=== PATIENT | male | born 1955 | race Caucasian/White ===

== ENCOUNTER 2025-04-30 06:09 | Day surgery (SDC) | payer OTHER, SELFPAY ==
[2025-04-30] VITALS (14 sets, daily range): BP systolic 120–146; BP diastolic 63–88; BMI 28.3
[2025-04-30] MEDS: NSS 300 ML IV (07:20)
--- NOTE | 2025-04-30 08:28 | ITS.CL.CATH ---
[facility] - Catheterization
Cardiac Catheterization
Procedure Report:
CARDIAC CATHETERIZATION REPORT
Date of Procedure: 04/30/2025
Referring: Aster Maldonado M.D.
INDICATION: Severe mitral valve regurgitation, moderate aortic valve regurgitation, preoperative assessment.
PROCEDURE:
1. Coronary angiography.
A total of 28 minutes of procedural/moderate sedation was utilized. An independent medical staff physician was present to assist with and help manage the patient's level of consciousness and physiologic status.
ACCESS:
1. 6 Romanian right radial artery using a modified Seldinger technique.
CATHETERS:
1. 5 Romanian JR4.
2. 5 Romanian JL 5.
HEMODYNAMIC DATA
Weight (kg): 99.9
AO (s/d/x, mmHg): 124/73/96
LV (s/x mmHg): Not obtained.
LEFT VENTRICULOGRAPHY: Not performed.
CORONARY ANGIOGRAPHY
Dominance: Right.
Left Main: Large size, bifurcating vessel. There is no coronary artery disease.
LAD: Large size vessel giving rise to 2 notable diagonals. There are minor luminal irregularities in the mid vessel spanning the origin of D2. There is a 30% lesion in the distal LAD.
Ramus: Congenitally absent.
Circumflex: Large size, nondominant vessel giving rise to 2 obtuse marginals before terminating is a large left posterolateral branch. There is no coronary artery disease.
RCA: Normal size, dominant vessel. There is no coronary artery disease.
INTERVENTION(S)
None.
Closure Device: Vascular band.
Radiation (mGy): 425.55
DAP (cm2.Gy): 31.0644
Fluoroscopy time (minutes): 2.8
CONCLUSIONS
1. Right dominant circulation with luminal irregularities in the mid LAD and a 30% lesion in the distal LAD.
2. Severe mitral valve regurgitation on echocardiography.
3. Moderate aortic valve insufficiency on echocardiography.
RECOMMENDATIONS:
1. Expectant management after cardiac catheterization via right radial approach.
2. Limited weight bearing on the right wrist for one week.
3. Proceed with surgical planning. No role for revascularization.
4. Aggressive primary prevention with high-dose, high potency statin. Goal LDL <55.
Copy to: Aster Maldonado M.D. Henri Sauceda M.D., Aj Johnson M.D.
Brown Bose DO, FACC, FACP
[2025-04-30] MEDS: NSS 1000 IV (10:47)
== END 2025-04-30 11:30 | disposition home or self-care (01) ==
LOC: CATH 06:09
PROVIDERS: ATTENDING PHYSICIAN Internal Medicine Cardiovascular Disease; FAMILY PHYSICIAN Internal Medicine; OTHER PHYSICIAN Internal Medicine Clinical Cardiac Electrophysiology
DX: I48.0 Paroxysmal atrial fibrillation (principal); I08.0 Rheumatic disorders of both mitral and aortic valves; Z01.818 Encounter for other preprocedural examination; Z79.01 Long term (current) use of anticoagulants
CPT/HCPCS: 99152; 99153; 93454; C1894; Q9967

== ENCOUNTER 2025-05-06 04:57 | Inpatient (IN) | payer OTHER, SELFPAY ==
[2025-04-25 08:10] VITALS: BMI 28.2
[2025-04-25 08:53] LABS: Urine Character Clear (Clear)
[2025-04-25 08:58] LABS: Urine Squamous Cell 0-2 /LPF (Few); Urine White Cell 0-2 /HPF (0-5)
[2025-04-25 09:03] LABS: INR 1.13; PT 14.8 Sec (11.4-14.6)
[2025-04-25 09:06] LABS: ALT (SGPT) 33 U/L (0-50); AST (SGOT) 35 U/L (17-59); Albumin 4.5 g/dl (3.5-5.0); Alkaline Phosphatase 78 U/L (38-126); Blood Urea Nitrogen 20 mg/dl (9-20); Calcium 9.7 mg/dl (8.4-10.2); Carbon Dioxide 28 mmol/L (22-30); Chloride 106 mmol/L (98-107); Estimated Creatinine Clearance 65 ml/min; Glucose 83 mg/dl (70-99); Potassium 4.1 mmol/L (3.5-5.1); Sodium 143 mmol/L (135-145); Total Protein 7.5 g/dl (6.3-8.2); eGFR > 60.00
[2025-04-25 09:18] LABS: Glycohemoglobin (HgbA1c) 5.6 % (4.0-5.6)
--- NOTE | 2025-04-25 09:37 | CM ---
Chart reviewed. Met with the patient and his in [facility]. Reviewed preoperative and postoperative instructions and restrictions, along with showering guidelines. Gave patient 2 soaps. Patient is agreeable to a visit by the CT Transitional RN.
Patient is independent of ADLS, lives with his in a [facility], 2 STH, 1st level set up, 3 KALPANA, shower bench and grab bars, 0 DME. Plan is for the patient to return home with CT Transitional RN.
[2025-04-25 10:22] LABS: Hematocrit 41.3 % (39.0-52.0); Hemoglobin 14.0 g/dL (13.0-18.0); Mean Corp Hgb Conc. 33.9 g/dL (33.0-37.0); Mean Corpuscular Volume 93.0 fL (80.0-94.0); Nucleated Red Blood Cells % 0 % (-); Platelet Count 134 10^3/uL (130-400); Red Cell Dist. Width 13.0 % (11.5-14.5)
[2025-05-06] VITALS (22 sets, daily range): BP systolic 84–138; BP diastolic 60–80; BMI 27.2
--- NOTE | 2025-05-06 05:45 | W.PN.UPDATE ---
Update Note
Progress Note Update
Pt's AM dose of Lopressor contraindicated and not given. HR 53 bpm
[2025-05-06] MEDS: MAGNESIUM OXIDE 400 MG PO (05:49)
[2025-05-06] MEDS: BACTROBAN 2% OINTMENT 1 APPLIC NASAL ×2 (05:50→20:19)
[2025-05-06] MEDS: PROTONIX 40 MG PO (05:50)
--- NOTE | 2025-05-06 06:10 | PTCARENOTE ---
Patient admitted to CVICU. Patient confirmed 2 CHG showers at home. Med rec performed. Height, weight, and vital signs confirmed. Patient clipped and washed w/ CHG. Medications administered. Metoprolol held per CT PA Ed. Admission questions
asked. Questions and concerns answered. Awaiting CVOR.
--- NOTE | 2025-05-06 06:12 | W.CVOR.SURPR ---
CVOR Surgeon Immed Pre Op
-
I have examined this patient prior to performance of the scheduled procedure.
The patient's condition is unchanged from the time of the dictated/written History and
Physical and the patient is able to undergo the scheduled procedure.
Sternotomy MV repair, MAZE, BEAR E, +/- AV repair vs replacement based on degree of AI
[2025-05-06 07:24] LABS: Urine Character Clear (Clear)
[2025-05-06 07:26] LABS: ACT+ - POC 134 Seconds (82-134)
[2025-05-06 07:32] LABS: Urine Red Blood Cell 16-20 /HPF (0-2)
[2025-05-06 08:25] LABS: ACT+ - POC 568 Seconds (82-134)
[2025-05-06 08:29] LABS: B.E. - POC -1.9 mmol/L; Glucose - POC 107 mg/dl (70-99); HCO3 - POC 24 mmol/L (21-28); Hematocrit - POC 37 % PCV (42-52); Hemodilution- POC No; Hemoglobin Calculated - POC 12.6; Ionized Calcium - POC 1.21 mmol/L (1.15-1.33); Lactate - POC 0.68 mmol/L (0.36-0.75); O2 Saturation %Calculated-POC 95.3 % (94-98); PCO2 - POC 45 mmHg (35-48); PO2 - POC 83 mmHg (83-108); POC Comment PRE; Potassium - POC 3.9 mmol/L (3.5-5.1); Sodium - POC 141 mmol/L (136-145); Specimen Type - POC Arterial; pH - POC 7.34 (7.35-7.45)
[2025-05-06 08:39] LABS: ACT+ - POC 605 Seconds (82-134)
[2025-05-06 09:03] LABS: ACT+ - POC 504 Seconds (82-134)
[2025-05-06 09:25] LABS: B.E. - POC 1.5 mmol/L; Glucose - POC 149 mg/dl (70-99); HCO3 - POC 25 mmol/L (21-28); Hematocrit - POC 33 % PCV (42-52); Hemodilution- POC Yes; Hemoglobin Calculated - POC 11.2; Ionized Calcium - POC 1.03 mmol/L (1.15-1.33); Lactate - POC 0.40 mmol/L (0.36-0.75); O2 Saturation %Calculated-POC 99.9 % (94-98); PCO2 - POC 34 mmHg (35-48); PO2 - POC 276 mmHg (83-108); POC Comment CPB; Potassium - POC 4.6 mmol/L (3.5-5.1); Sodium - POC 140 mmol/L (136-145); Specimen Type - POC Arterial; pH - POC 7.48 (7.35-7.45)
[2025-05-06 09:36] LABS: ACT+ - POC 612 Seconds (82-134)
[2025-05-06 09:51] LABS: B.E. - POC 0.9 mmol/L; Glucose - POC 132 mg/dl (70-99); HCO3 - POC 26 mmol/L (21-28); Hematocrit - POC 34 % PCV (42-52); Hemodilution- POC Yes; Hemoglobin Calculated - POC 11.6; Ionized Calcium - POC 1.15 mmol/L (1.15-1.33); Lactate - POC 0.94 mmol/L (0.36-0.75); O2 Saturation %Calculated-POC 99.9 % (94-98); PCO2 - POC 44 mmHg (35-48); PO2 - POC 264 mmHg (83-108); POC Comment CPB; Potassium - POC 4.0 mmol/L (3.5-5.1); Sodium - POC 141 mmol/L (136-145); Specimen Type - POC Arterial; pH - POC 7.38 (7.35-7.45)
[2025-05-06 10:00] LABS: ACT+ - POC 530 Seconds (82-134)
[2025-05-06 10:22] LABS: B.E. - POC 0.6 mmol/L; Glucose - POC 135 mg/dl (70-99); HCO3 - POC 27 mmol/L (21-28); Hematocrit - POC 32 % PCV (42-52); Hemodilution- POC Yes; Hemoglobin Calculated - POC 10.9; Ionized Calcium - POC 1.16 mmol/L (1.15-1.33); Lactate - POC 0.88 mmol/L (0.36-0.75); O2 Saturation %Calculated-POC 99.9 % (94-98); PCO2 - POC 48 mmHg (35-48); PO2 - POC 270 mmHg (83-108); POC Comment CPB; Potassium - POC 4.4 mmol/L (3.5-5.1); Sodium - POC 143 mmol/L (136-145); Specimen Type - POC Arterial; pH - POC 7.35 (7.35-7.45)
[2025-05-06 10:31] LABS: ACT+ - POC 521 Seconds (82-134)
[2025-05-06 10:37] LABS: B.E. - POC 2.8 mmol/L; Glucose - POC 129 mg/dl (70-99); HCO3 - POC 27 mmol/L (21-28); Hematocrit - POC 31 % PCV (42-52); Hemodilution- POC Yes; Hemoglobin Calculated - POC 10.6; Ionized Calcium - POC 1.14 mmol/L (1.15-1.33); Lactate - POC 0.34 mmol/L (0.36-0.75); O2 Saturation %Calculated-POC 99.9 % (94-98); PCO2 - POC 41 mmHg (35-48); PO2 - POC 330 mmHg (83-108); POC Comment CPB; Potassium - POC 4.1 mmol/L (3.5-5.1); Sodium - POC 142 mmol/L (136-145); Specimen Type - POC Arterial; pH - POC 7.43 (7.35-7.45)
[2025-05-06 10:43] LABS: ACT+ - POC 448 Seconds (82-134)
[2025-05-06 10:59] LABS: ACT+ - POC 463 Seconds (82-134)
[2025-05-06 11:06] LABS: B.E. - POC 0.9 mmol/L; Glucose - POC 133 mg/dl (70-99); HCO3 - POC 25 mmol/L (21-28); Hematocrit - POC 32 % PCV (42-52); Hemodilution- POC Yes; Hemoglobin Calculated - POC 10.9; Ionized Calcium - POC 1.12 mmol/L (1.15-1.33); Lactate - POC 0.32 mmol/L (0.36-0.75); O2 Saturation %Calculated-POC 100.0 % (94-98); PCO2 - POC 38 mmHg (35-48); PO2 - POC 351 mmHg (83-108); POC Comment WARM; Potassium - POC 4.5 mmol/L (3.5-5.1); Sodium - POC 145 mmol/L (136-145); Specimen Type - POC Arterial; pH - POC 7.43 (7.35-7.45)
[2025-05-06 11:10] LABS: ACT+ - POC 118 Seconds (82-134)
[2025-05-06 11:20] LABS: B.E. - POC -2.2 mmol/L; Glucose - POC 131 mg/dl (70-99); HCO3 - POC 23 mmol/L (21-28); Hematocrit - POC 29 % PCV (42-52); Hemodilution- POC Yes; Hemoglobin Calculated - POC 9.8; Ionized Calcium - POC 1.25 mmol/L (1.15-1.33); Lactate - POC 1.34 mmol/L (0.36-0.75); O2 Saturation %Calculated-POC 96.2 % (94-98); PCO2 - POC 38 mmHg (35-48); PO2 - POC 84 mmHg (83-108); POC Comment POST; Potassium - POC 3.9 mmol/L (3.5-5.1); Sodium - POC 142 mmol/L (136-145); Specimen Type - POC Arterial; pH - POC 7.38 (7.35-7.45)
--- NOTE | 2025-05-06 11:49 | W.PN.CT.SURG ---
Addendum entered and electronically signed by Henri Sauceda MD 05/06/25 19:48:
05/06/25
Original Note:
CT Surgery Operative Note
-
CARDIAC SURGERY OPERATIVE REPORT
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
Postoperative Diagnosis: Same
Procedure(s) Performed:
1. Standard sternotomy and aortic and bicaval cannulation
2. Radical mitral valve repair [triangular dissection at P1 with sliding plasty onto the commisure with the remnant P1 leaflet and cleft closure of P1 P2, 34 mm band annuloplasty]
3. Surgical aortic valve replacement [29 mm bioprosthesis]
4. Left atrial maze [RF ablation and cryoablation]
5. Left atrial appendage exclusion
6. Placement of temporary atrial and ventricular pacing wires
7. Transesophageal cardiography
Date of Surgery: 05/06/25
Comorbidities:
1. 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
2. Moderate aortic valve insufficiency secondary to leaflet pathology at the noncoronary cusp commissure, fenestrations
3. Paroxysmal atrial fibrillation
4. Acute on chronic heart failure with admission
5. On chronic anticoagulation for A-fib
Attending Surgeon: Henri Sauceda MD, MS
Assistants: Aurea Munoz PA-C (present and necessary to surgical dental assistant, retraction, suction, exposure, suture management, and wound closure under my direction), Autumn Carcamo MD (Attending Cardiac Surgeon)
Anesthesiology: Giancarlo Keating MD and Cornelius Jacinto CRNA
Scrub and Circulating RNs: Mary Marie, KENDRA, Danilo Mcgill RN
Results Technician: Faviola Ryder CCP
Anesthesia: GETA
EBL: per perfusion records
Products: None
CPB Time: 124 minutes
Aortic Cross Clamp Time: 149 minutes
Indication(s) for Procedures: This is a 70-year-old male who was recently admitted to an outside facility for just of heart failure. He was found to have severe mitral valve insufficiency secondary to a P3/P2 flail scallop. Given his admission for
heart failure and his severe mitral valve insufficiency he met class I indication for surgical intervention. He also had a moderate degree of aortic valve insufficiency which would be evaluated time of surgery. Given his paroxysmal atrial
fibrillation, he was offered surgical ablation as well as left atrial appendage exclusion.
Aortic Valve Description: No thickening or abnormal calcification, fenestrations located at the noncoronary commissure with laxity of the noncoronary cusp leading to a mild degree of prolapse resulting in a moderate degree of insufficiency. Left
and right coronary ostia the normal anatomic positions.
Mitral Valve Description: Thickening of the P1 and P2 scallops with a large cleft. There was a flail segment of P1 with torn cords of the free margin. The annulus was severely dilated mostly towards the P2 P3 side.
Findings: His left ventricular ejection fraction preoperatively was normal at 60% with no significant regional wall motion abnormalities. Following surgery his EF remained the same at 60% with no new regional wall motion abnormalities. The mitral
valve was repaired with a resection of the P1 flail segment of the scallop in a triangular fashion. This was then reapproximated to the commissure. The cleft was then closed by approximately free margin of P2 onto P1 and then placing interrupted
5-0 Prolene [id number] sutures along the cleft. A total of 10 nonpledgeted 2-0 TiCron sutures were placed on trigone to trigone securing a 34 mm band annuloplasty into place. The aortic valve initially was examined and a plication stitch was
placed at the node of Arantius however I noticed there is also fenestrations toward the noncoronary commissure and some muscular creeping at the level of the annular plane. I did not feel the repair would be durable and so the valve was replaced
using a total of 15 nonpledgeted 2 of Ethibond sutures placed from LVOT through annulus through sewing cuff securing a [address]. A full left atrial maze was performed using a combination of RF ablation to form the posterior
wall lesion set and then using cryo to complete the coronary sinus and mitral isthmus as well as left atrial appendage line. Ligament of Sincere was also divided. A 40 mm clip was applied flush to the base and found to be totally occlusive by
RAOUL. After coming off cardiopulmonary bypass there was a trace residual amount of mitral valve sufficiency at the P1 side. There is no systolic anterior motion of leaflets, the mean gradient across the new valve repair was 3 mmHg. The aortic
valve had a very small insignificant paravalvular leak that improved with protamine. The gradient across that valve was 5 mmHg. No blood products were given during this case, cardiac index was over 2 without inotropic support initially, after
short period of DDI pacing he regained his tejon sinus rhythm. All closing the subcutaneous layer, there was some periods of fluctuating blood pressures, RAOUL did not reveal any hematoma however the drains seem to be clotted off and not draining
adequately. With this instability, and the poor drainage, I felt was safest to reopen and inspect. There was no obvious cardiac tamponade or large hematoma. There was some minor bleeding from the antegrade site and from the chest tube insertion
sites which were managed with additional suture. Hemostasis was once again obtained and inotropic support was initiated with good response and the LV overall appeared to be less dilated and yakelin better. I closed the chest in the usual fashion
once again.
Ablation Lines:
1. Box lesion to posterior LA wall
2. BEAR lesion + BEAR Exclusion + Division of Ligament of Sincere
3. Coronary sinus lesion
4. Posterior mitral annular line toward P2/P3
Specimen(s): Aortic valve leaflets.
Prosthesis:
1. 40 mm left atrial appendage clip, serial #[id number]
2. 34 mm Alba physio flex angioplasty band, serial #[id number]
3. 29 mm Alba Inspiris Resilia aortic valve bioprosthesis, serial #[id number]
Description of Procedure: The patient was taken to the operating room. Their identity and procedure to be performed were verified and they were positioned supine on the operating table. Induction via general anesthesia with endotracheal intubation
was performed and central venous access and arterial monitoring were inserted. A preoperative transesophageal echocardiogram was performed to assess cardiac function and valvular function. The patient was then prepped and draped from chin to feet in
a sterile fashion. A preoperative time-out was performed with all members of the team present. A midline chest incision was performed along with median sternotomy. The innominate vein was isolated. Full heparinization was given (a total of 65,000
units). We created a pericardial well. The aortic cannulation site was chosen where it was soft, pliable, and free of calcium. Cannulation was performed with an arterial cannula in the ascending aorta, angled metal tip cannular in the superior vena
cava and straight bendable cannula in the inferior vena cava. The arterial cannula line had an appropriate bounce and correlating pressures. Next, a root vent/antegrade cannula was inserted into the ascending aorta. A retrograde coronary sinus
catheter was then placed. The ACT was confirmed to be over 400 and retrograde autologous priming was performed before commencing cardiopulmonary bypass. The SVC was then away from the right pulmonary artery and the oblique sinus was
developed. The encompass clamp was passed underneath the SVC and IVC across the transverse and oblique sinuses, respectively. 3 successful pairs ablation were then performed. The pulmonary artery was away from the aorta to facilitate a
clamp site. Sondergaard�s groove was developed after creating the oblique sinus. The aortic cross-clamp was placed after decreasing the flow on the bypass and mean arterial pressure. A total of 1.2L initial dose of antegrade Del-Nido cardioplegia
solution was given and planned for re-dosing every 60 minutes as necessary. There was rapid electro-mechanical arrest of the heart at 500-600 cc of cardioplegia. The left ventricle was observed for distention on echocardiogram and manual palpation.
Cold slush was placed into a lap on the RV and we systemically cooled to 34 degrees centigrade.
Carbon dioxide was used to flood the field. Once the heart was fully arrested it was rotated medially and the ligament of Sincere was divided. The left atrial manage was then sized to a 40 mm device which was then applied flush to the base. I
then turned my attention towards opening Sondergaard's groove and addressed the mitral valve. Additional cryo lines were then performed here before valve repair. After valve analysis, the mitral valve was repaired as described above. The drop
sucker was then replaced across the mitral valve the left atrium was closed over top. I then performed an aortotomy approximately 1.5cm above the STJ in an oblique fashion. Stay sutures were placed and the I attempted a leaflet repair but ultimately
felt that it would not durable. The leaflets were excised. A total of 15 Non-pledgeted 2-0 ethibond inverted annular sutures were placed [id number] circumferentially. These were brought through the sewing cuff of the prosthetic valve which as
then parachuted into place. The left and right coronary ostia were visualized and were unobstructed by the valve. A Cor-Knot device was used to secure the annular sutures. The valve was inspected and was well seated. The aortotomy was approximated
with 4-0 prolene in two layers.
De-airing maneuvers were performed and temporary atrial and ventricular pacing wires were placed at the SVC/RA junction and base of the right ventricle, respectively. The patient was placed in a Trendelenburg position and flows on bypass were
lowered. The aortic cross clamp was removed and flows were slowly brought back up. The left atrial suture line was hemostatic. Transesophageal echocardiography revealed no evidence of systolic anterior motion and ventricular function was normal.
The AV prosthesis was well seated without PVL or AI. Once de-airing was satisfactory the left ventricular and root vents were removed. After verifying acceptable parameters, we initiated weaning from cardiopulmonary bypass. Once we were off
cardiopulmonary bypass, the venous cannulas was clamped and removed sequentially. A test dose of protamine was administered and the patient was monitored for any adverse reaction before resuming protamine. Once half of the protamine dose was
delivered, pump suckers were turned off and the systolic blood pressure was lowered for aortic decannulation. The aortic cannula was removed and purse strings were tied down. All cannulation sites were oversewn with a 4-0 prolene. The left atrial
suture line was inspected and hemostasis was confirmed. Mediastinal hemostasis was obtained. Two #24 Wayne drains were placed within the pericardium. The sternum was approximated with 4 #7 single and 3 #8 double stainless steel wires. Fascia was
approximated with #1 vicryl suture. The subcutaneous, dermis and epidermis were closed in layers in a running fashion. At this point I did reopen and removed all the previous wires and inspected all the surgical sites. There was no hematoma or
significant arterial bleeding. There was some minor oozing from the antegrade site which was managed with additional pledgeted sutures. A Vicryl suture was also placed around the pacing wire site as it inserted into the muscle and had some oozing
there. I then placed sternal wires in the usual fashion. The tissue layers were closed again and the skin wound was cleansed and dressed.
All instrument, sponge, and needle counts were confirmed to be correct x 2 at the end of the operation. The patient was transferred to the cardiac intensive care unit in critical but stable condition.
I, Dr. Henri Sauceda, was present, scrubbed for, and performed all critical elements of this procedure.
Henri Sauceda MD, MS
Cardiothoracic Surgeon
[facility]
This dictation was created using the [employer] dictation system. Please excuse any grammatical, typographical, or 'sound alike' errors
--- NOTE | 2025-05-06 12:03 | CON.INTV ---
Consultation
Consultation Request
Date/Time Consultation Requested: 05/06/2025- noon
Date/Time Consultation Performed: 05/06/2025- noon
Requesting Provider: Dr. Sauceda
Performing Provider: Dr. Apple
Reason for Consultation: Postoperative ventilator/critical care management
Medical History
-
Chief Complaint: Aortic stenosis
History of Present Illness:
70-year-old male with a history of atrial fibrillation, CHF, mitral valve regurgitation found to have significant mitral regurgitation and underwent mitral valve repair, MAZE, AVR-metal hanger consulted for postoperative ventilator/critical care
management 05/06/2025. The patient is seen postoperatively in the cardiovascular intensive care unit on the ventilator-review of systems was unobtainable. Operative records were reviewed as well as pressors, ventilator settings, etc.
Past Medical History
Past Medical History: None (Atrial fibrillation. Mitral valve regurgitation. History CHF. Cholecystectomy. Hernia repair x 3. Left knee arthroscopy.)
Social History
Tobacco: Non-smoker ( Never)
Alcohol: Occasional
Drug: None
Personal:
Living: With Family
Occupational Exposures: No known asbestos exposure
Environmental Exposures: No known tuberculosis exposure
Family History
Family History: Reviewed & Not Pertinent (Father-brain cancer, mother-CAD)
Allergies / Home Medications
Allergies
Allergy/AdvReac Type Severity Reaction Status Date / Time
fenofibrate (From Tricor) Allergy hot flashes Verified 04/30/25 06:42
Home Medications
�Medication �Instructions �Recorded �Confirmed �Last Taken �Type
amiodarone 200 mg tablet 200 mg PO DAILY AFib 04/23/25 05/06/25 05/05/25 07:00 History
apixaban 5 mg tablet (Eliquis) 5 mg PO BID Blood Clot 04/23/25 05/06/25 05/02/25 07:00 History
Prevention/Tx
icosapent ethyl 1 gram capsule 2 g PO BID High Cholesterol 04/23/25 05/06/25 04/28/25 20:00 History
(Vascepa)
multivitamin 1 tab PO DAILY Supplement 04/23/25 05/06/25 04/28/25 07:00 History
rosuvastatin 10 mg tablet 10 mg PO DAILY High Cholesterol 04/23/25 05/06/25 05/05/25 07:00 History
sildenafil 25 mg tablet 25 mg PO PRN PRN ED 04/23/25 05/06/25 05/01/25 14:00 History
diphenhydramine 25 2 tab PO HS PRN sleep 04/30/25 05/06/25 04/05/25 History
mg-acetaminophen 500 mg tablet
(Tylenol PM Extra Strength)
Review of Systems
-
Unable to Obtain full review of systems at this time due to: Patient Intubation and Other (Per HPI)
Vitals / Labs / Diagnostic Testing
Vital Signs
Temp Pulse Resp BP Pulse Ox
97.6 F 57 16 126/73 97
05/06/25 05:36 05/06/25 05:36 05/06/25 05:36 05/06/25 05:06 05/06/25 05:36
Diagnostic Testing:
Physical Exam
-
Exam:
well-nourished and well-developed in no apparent distress
HEENT-atraumatic, normocephalic, oral tracheal intubation
Heart-regular rate and rhythm-no murmurs, rubs or gallops
Chest-clear to auscultation, no wheezes, crackles, median sternotomy bandage is not removed
Abdomen soft nondistended
Extremities-no cyanosis, clubbing, edema and good peripheral pulses
Integument-intact, no rashes, lesions or ecchymosis
Neurologically not alert, not oriented, not moving any of his extremities sedated on a ventilator
Assessment
-
70-year-old male with a history of atrial fibrillation, CHF, mitral valve regurgitation found to have significant mitral regurgitation and underwent mitral valve repair/replacement, LA - MAZE -metal hanger consulted for postoperative
ventilator/critical care management 05/06/2025.
Severe mitral regurgitation
Status post mitral valve repair/MAZE/AVR/clip-Dr. Sauceda 05/06/2025
Small incidental pulmonary nodules
Conditions present prior to admission:
Atrial fibrillation.
Mitral valve regurgitation.
History CHF.
Cholecystectomy.
Hernia repair x 3.
Left knee arthroscopy.
Plan
Ventilator settings reviewed
FiO2 will be weaned
Minute ventilation will be adjusted
Arterial blood gases will be monitored
Spontaneous breathing trial will be attempted with hopeful extubation after anesthesia/sedation wear off
Pulmonary artery catheter parameters will be followed
Pressors/antihypertensive/inotropes/diuretics will be provided as needed
Monitor chest tube output
Monitor hemoglobin
Monitor platelet count and coags
Transfuse blood product if needed
CT surgery following chest tubes
Monitor blood sugar
Insulin drip per protocol
Aspiration precautions
VAP prevention protocol
DVT prophylaxis
Early nutrition
Early mobilization
Follow-up CT chest in 1 year to ensure nodular stability
Critical care statement: A total of 65 minutes of critical care time was provided for this patient today. This includes management of ventilator, spontaneous breathing trial, arterial blood gases, pressors, of unstable vital signs, evaluation of the
patient at bedside, reviewing the patient's pertinent medical records including radiographs, microbiology, laboratory evaluations, and discussion with primary team and critical care nursing.
Diagnostic data:
CT chest 04/25/2025-mild ectasia of the ascending aorta measuring 4 cm, no pericardial effusion, small lung nodules and parenchymal opacifications largest nodule measuring 4.8 mm
Cardiac catheterization 04/30/2025-severe mitral regurgitation, moderate aortic valve insufficiency, mid LAD irregularities and 30% distal LAD lesion
Data Reviewed
-
EKG: Report reviewed by me
CT Scan: Image personally visualized and interpreted and Report reviewed by me
Medical Tests (Nuc Med, Echo etc): Report reviewed by me
Old Records: Reviewed
Critical Care Time (in minutes): 65
[2025-05-06 12:39] LABS: ACT+ - POC 142 Seconds (82-134)
[2025-05-06] MEDS: NEURONTIN PO ×3 (12:50→23:02)
[2025-05-06] MEDS: TYLENOL PO ×2 (12:50→23:02)
[2025-05-06 13:17] LABS: B.E. - POC -2.2 mmol/L; Glucose - POC 124 mg/dl (70-99); HCO3 - POC 24 mmol/L (21-28); Hematocrit - POC 32 % PCV (42-52); Hemodilution- POC Yes; Hemoglobin Calculated - POC 10.9; Ionized Calcium - POC 1.20 mmol/L (1.15-1.33); Lactate - POC 0.91 mmol/L (0.36-0.75); O2 Saturation %Calculated-POC 99.4 % (94-98); PCO2 - POC 46 mmHg (35-48); PO2 - POC 173 mmHg (83-108); Potassium - POC 4.0 mmol/L (3.5-5.1); Sodium - POC 143 mmol/L (136-145); Specimen Type - POC Arterial; pH - POC 7.32 (7.35-7.45)
[2025-05-06] MEDS: NSS 500 IV (14:00)
[2025-05-06] MEDS: LR 250 ML IV ×3 (14:00→16:43)
[2025-05-06] MEDS: ANCEF 10 IV ×2 (14:00)
[2025-05-06 14:01] LABS: B.E. -2.8 mmol/L; HCO3 24.0 mmol/L (21-28); O2 Saturation % 99.0 % (94-98); PCO2 50 mmHg (35-48); PO2 109 mmHg (83-108); Potassium 3.9 mMOL/L (3.5-5.1); Sodium 138 mMOL/L (136-145)
[2025-05-06 14:04] LABS: B.E. - POC -1.4 mmol/L; Blood Urea Nitrogen - POC 16 mg/dl (3-120); Chloride - POC 110 mmol/L (96-111); Creatinine - POC 1.09 mg/dl (0.3-1.0); Glucose - POC 125 mg/dl (70-99); HCO3 - POC 26 mmol/L (21-28); Hematocrit - POC 26 % PCV (42-52); Hemodilution- POC No; Hemoglobin Calculated - POC 9.0; Ionized Calcium - POC 1.15 mmol/L (1.15-1.33); Lactate - POC 1.11 mmol/L (0.36-0.75); O2 Saturation %Calculated-POC 87.9 % (94-98); PCO2 - POC 54 mmHg (35-48); PO2 - POC 62 mmHg (83-108); Potassium - POC 3.8 mmol/L (3.5-5.1); Sodium - POC 147 mmol/L (136-145); Specimen Type - POC Arterial; pH - POC 7.28 (7.35-7.45)
[2025-05-06] MEDS: CORDARONE 3 MG IV (14:05)
[2025-05-06] MEDS: CORDARONE 518 MG IV (14:06)
--- NOTE | 2025-05-06 14:10 | W.PN.UPDATE ---
Update Note
Progress Note Update
70-year-old male was electively admitted on 05/06/2025 for AVR, mitral repair, and maze for severe mitral regurgitation due to flail P1, moderate AI and history of A-fib
IV fluids: 1800
U.O.:� 600
Cell Saver: 500
Blood:� 50
Wires:� A + V wires
Drips: Dobut 5, Vaso 0.02, Levo 4, Insulin, Precedex
�
NEURO: sedated, pupils +2mm B/L
RESP: #8OT @23cm> 500/60%/14/5. Lungs clear B/L. 2 mediastinal (30cc on arrival) chest tubes to -20cm suction. Sanguineous drainage
CV: RRR +S1, S2, no S3, no�rub, no murmur. Dermabond to median sternotomy. RIJ w/[place] locked @ 45cm. PA 46/22; CVP 7; CI 3.35
ABD: round, soft, no BS
EXT: no edema, +2/4 DP pulses B/L, no femoral bruit, left radial A-line intact
: Montoya with clear yellow urine
�
A/P: POD #0 s/p AVR #29mm bio, mitral repair with triangular dissection at P1 w/sliding plasty and cleft closure of P1 P2, #34 mm band, MAZE(RF ablation & cryo)
RAOUL: Normal EF, AV mean 5mmHg, MV mean 3mmHg
- wean and extubate
- will need instruction regarding antibiotic prophylaxis for dental and invasive procedures
- will need pre discharge TTE
# Permanent AF with postop LESLIE
- Amio 150mg IV + infusion Dobutamine down to 3, LR bolus 500cc, CV x 1 (200j) d/t hemodynamic instability>AF slower rate
- on Adal/Eliquis at home
# Acute post-op hypercarbic respiratory failure
- vent settings adjusted to RR 18, FiO2 70%, PEEP 8
- recheck ABG in 1 hour
�
# acute surgical blood loss anemia-expected
- trend CBC
�
# Acute post-op hyperglycemia (A1C 5.6)
- insulin infusion x 24h
- assess need for continued SSI
�
# Hyperlipidemia
- resume statin, Vascepa
--- NOTE | 2025-05-06 14:12 | CM ---
Chart reviewed. Patient is in the OR today. Patient is independent of ADLS, lives with his in a 2 STH, 1st level set up, 3 KALPANA, 0 DME. Plan is for the patient to return home with CT Transitional RN. CM to follow
[2025-05-06 14:14] LABS: INR 1.45; PT 17.9 Sec (11.4-14.6)
[2025-05-06 14:15] LABS: APTT 34.3 Sec (23.4-35.0)
[2025-05-06] MEDS: CALCIUM GLUCONATE 100 IV (14:18)
[2025-05-06 14:24] LABS: Blood Urea Nitrogen 18 mg/dl (9-20); Estimated Creatinine Clearance 78 ml/min; Glucose 122 mg/dl (70-99); Magnesium 2.4 mg/dl (1.6-2.3)
--- NOTE | 2025-05-06 14:30 | PTCARENOTE ---
pt received from [facility] @~1340, sedated on Precedex gtt, RASS-5. core temp 94.4F, bear hugger applied as ordered. A-fib on the monitor per post op EKG, HR 100-110s. synchronized cardioversion performed w/ Dr. Sauceda at bedside, 200J x1. amiodarone 150mg
IVP given per Dr. Sauceda. Amiodarone gtt started as ordered. HR 90s, EKG performed, SR w/ 1st AVB, HR 90s. SBP goal 90-110s, MAPs >65, Levophed and Vasopressin gtts titrated as ordered. A&V wires in place, DDI 45/. PAP 40-50s/20s, Dr. Sauceda aware.
CVP ~7. CI >2. Dobutamine gtt titrated as ordered. palpable pulses. pt mechanically ventilated, ETT @8.0, 23cm@lip. SIMV 14, TV 500, PEEP 8, FIO2 70%. POX 92-97%. lungs clear anteriorly. CTx2, no air leak or crepitus. pt abdomen s/n, hypoactive BS.
Montoya in place, clear yellow urine. sternal incision CLIP ON SUNGLASSES ASSEMBLER, approximated. chest tube site c/d/i. RIJ cordis/swan maintained. L radial Alexandra flushed, zeroed, and calibrated. PIV. insulin gtt running as ordered. lab work drawn, CXR completed. 500ml LR
given as ordered. lytanika repleted. see worklist for VS, I&O, and assessment.
[2025-05-06 14:31] LABS: Glucose - Point of Care 130 mg/dl (70-99)
[2025-05-06 14:40] LABS: Hematocrit 28.7 % (39.0-52.0); Hemoglobin 9.7 g/dL (13.0-18.0); Platelet Count 70 10^3/uL (130-400)
[2025-05-06 14:46] LABS: B.E. -1.2 mmol/L; HCO3 25.2 mmol/L (21-28); O2 Saturation % 99.0 % (94-98); PCO2 49 mmHg (35-48); PO2 96 mmHg (83-108)
[2025-05-06 15:05] LABS: Glucose - Point of Care 133 mg/dl (70-99)
[2025-05-06] MEDS: PACERONE PO (15:17)
[2025-05-06] MEDS: KCL 50 IV (15:23)
[2025-05-06 15:43] LABS: B.E. - POC 4.3 mmol/L; Glucose - POC 116 mg/dl (70-99); HCO3 - POC 28 mmol/L (21-28); Hematocrit - POC 31 % PCV (42-52); Hemodilution- POC Yes; Hemoglobin Calculated - POC 10.6; Ionized Calcium - POC 1.09 mmol/L (1.15-1.33); Lactate - POC < 0.30 mmol/L (0.36-0.75); O2 Saturation %Calculated-POC 100.0 % (94-98); PCO2 - POC 38 mmHg (35-48); PO2 - POC 378 mmHg (83-108); POC Comment CPB; Potassium - POC 3.8 mmol/L (3.5-5.1); Sodium - POC 141 mmol/L (136-145); Specimen Type - POC Arterial; pH - POC 7.48 (7.35-7.45)
[2025-05-06] MEDS: PRECEDEX 100 IV (15:55)
[2025-05-06 16:06] LABS: B.E. - POC -0.1 mmol/L; Blood Urea Nitrogen - POC 18 mg/dl (3-120); Chloride - POC 107 mmol/L (96-111); Creatinine - POC 1.13 mg/dl (0.3-1.0); Glucose - POC 164 mg/dl (70-99); HCO3 - POC 26 mmol/L (21-28); Hematocrit - POC 27 % PCV (42-52); Hemodilution- POC No; Hemoglobin Calculated - POC 9.3; Ionized Calcium - POC 1.21 mmol/L (1.15-1.33); Lactate - POC 1.11 mmol/L (0.36-0.75); O2 Saturation %Calculated-POC 95.6 % (94-98); PCO2 - POC 45 mmHg (35-48); PO2 - POC 83 mmHg (83-108); Potassium - POC 4.6 mmol/L (3.5-5.1); Sodium - POC 143 mmol/L (136-145); Specimen Type - POC Arterial; pH - POC 7.36 (7.35-7.45)
[2025-05-06 16:07] LABS: Glucose - Point of Care 144 mg/dl (70-99)
--- NOTE | 2025-05-06 16:49 | PTCARENOTE ---
pt appears to be in accelerated junctional rhythm, HR 90s. SBP 80s. Levophed gtt titrated as ordered. APPRENTICE TECHNICIAN aware. EKG completed. 250ml LR given. PEEP decrease from 10 to 8 by RT Jeannie per APPRENTICE TECHNICIAN Sujata. APPRENTICE TECHNICIAN aware of hemodynamics and gtts.
[2025-05-06 17:05] LABS: Glucose - Point of Care 133 mg/dl (70-99)
[2025-05-06 17:36] LABS: B.E. - POC 0.0 mmol/L; Blood Urea Nitrogen - POC 18 mg/dl (3-120); Chloride - POC 108 mmol/L (96-111); Creatinine - POC 1.19 mg/dl (0.3-1.0); Glucose - POC 149 mg/dl (70-99); HCO3 - POC 26 mmol/L (21-28); Hematocrit - POC 28 % PCV (42-52); Hemodilution- POC No; Hemoglobin Calculated - POC 9.6; Ionized Calcium - POC 1.25 mmol/L (1.15-1.33); Lactate - POC 1.17 mmol/L (0.36-0.75); O2 Saturation %Calculated-POC 98.3 % (94-98); PCO2 - POC 45 mmHg (35-48); PO2 - POC 115 mmHg (83-108); Potassium - POC 4.7 mmol/L (3.5-5.1); Sodium - POC 145 mmol/L (136-145); Specimen Type - POC Arterial; pH - POC 7.37 (7.35-7.45)
[2025-05-06] MEDS: LEVOPHED 250 IV (17:43)
--- NOTE | 2025-05-06 17:47 | PTCARENOTE ---
EPOC completed on FIO2 60% and PEEP 8 by MICROSOFT OFFICE INSTRUCTOR. per MICROSOFT OFFICE INSTRUCTOR, decrease FIO2 to 40%, POX 95%. pt able to nod head, follow commands, PAIGE. MICROSOFT OFFICE INSTRUCTOR aware of Vaso and Levophed gtts. attempted AAI @ rate of 100 w/ MICROSOFT OFFICE INSTRUCTOR at bedside, no change in hemodynamics, placed on AAI
50/14.
[2025-05-06 18:09] LABS: Hematocrit 29.0 % (39.0-52.0); Hemoglobin 9.9 g/dL (13.0-18.0); Platelet Count 101 10^3/uL (130-400)
[2025-05-06 18:11] LABS: Glucose - Point of Care 126 mg/dl (70-99)
--- NOTE | 2025-05-06 18:42 | RESPNOTE ---
Patient extubated to 6L NC after weaning on cpap/psv 5/5 for 30 minutes. No stridor noted on extubation. Patient able to verbalize name and clear secretions. Spo2 95-99% on 6L.
--- NOTE | 2025-05-06 18:45 | PTCARENOTE ---
Addendum entered by Aarti Torres RN 05/07/25 09:12:
PEEP @5*
Original Note:
pt placed on CPAP trial @1800, on PEEP @8, FIO2 40%. pt extubated as ordered @1830 to 6LNC, oriented x4. PAIGE. called and updated.
[2025-05-06] MEDS: LOW STRENGTH ASPIRIN 81 MG PO (19:34)
[2025-05-06] MEDS: ANCEF 5 IV (19:34)
[2025-05-06 20:01] LABS: Glucose - Point of Care 113 mg/dl (70-99)
--- NOTE | 2025-05-06 20:10 | PTCARENOTE ---
Assumed care of patient at 1900. Patient found resting in bed at time of assessment. Patient is AOx4, follows commands appropriately, moves all extremities. Patient reports drowsiness. Lung sounds are clear and equal bilaterally, patient is on 6L
via NC saO2 100%, there are 2xmed CTs draining red sanguineous to one atrium. Heart sounds are audible. Patient is in an accelerated junctional rhythm HR in the 90s with BBB and PACs. There is a temporary PM in place with AAI settings. Patient has
normal palpable pulses and no observable edema. Patient has hypoactive BS throughout and has parrish draining clear yellow urine. Patient had nausea and episode of emesis at 2004 green-yellow bilious in appearance. CT PA aware advised to not give
zofran d/t earlier rhythm issues. Patient has sternal incision approx with surg adhesive GROUP DIRECTOR EXPERIENCE and 4x4 gauze dressing over CT wounds that is CDI. Patient has the following lines: R IJ cordis with swan at 45cm, R AC PIV, and L radial Alexandra. Patient has
the following gtts: Cordis/VIP KVO, Insulin col 2, Levo@6, Vaso@0.05, Dobut@3. Patient has no c/o pain. VSS. Call tavera within reach.
[2025-05-06] MEDS: SENOKOT-S PO (20:20)
[2025-05-06 20:24] LABS: B.E. 1.2 mmol/L; HCO3 24.9 mmol/L (21-28); O2 Saturation % 98.9 % (94-98); PCO2 35 mmHg (35-48); PO2 80 mmHg (83-108); Potassium 4.7 mMOL/L (3.5-5.1)
[2025-05-06] MEDS: REGLAN 10 MG IV (20:58)
[2025-05-06] MEDS: CALCIUM GLUCONATE 130 MG IV (21:05)
--- NOTE | 2025-05-06 21:15 | PTCARENOTE ---
Per CT PA turn off Vaso and titrate Levo to manage BPs. ABG and MVO2 obtained. Repleted Ca with 3g CaGluconate. Additional episode of bilious emesis received orders for IV reglan.
[2025-05-06 22:04] LABS: Glucose - Point of Care 125 mg/dl (70-99)
[2025-05-06] MEDS: LIPITOR PO (23:02)
[2025-05-06 23:07] LABS: Glucose - Point of Care 114 mg/dl (70-99)
[2025-05-07] VITALS (34 sets, daily range): BP systolic 82–145; BP diastolic 55–90; BMI 28.2
--- NOTE | 2025-05-07 | PTCARENOTE ---
Patient reassessed. VSS. Remains Junctional on the monitor. O2 weaned to 2L. Levo tapered to 6. Call tavera within reach.
[2025-05-07 00:13] LABS: Glucose - Point of Care 122 mg/dl (70-99)
[2025-05-07 01:07] LABS: Glucose - Point of Care 107 mg/dl (70-99)
[2025-05-07 02:11] LABS: Glucose - Point of Care 107 mg/dl (70-99)
[2025-05-07] MEDS: LEVOPHED 250 IV (03:13)
[2025-05-07] MEDS: ANCEF 5 IV ×2 (03:13→11:20)
--- NOTE | 2025-05-07 03:40 | PTCARENOTE ---
Addendum entered by Pancho Barksdale RN 05/07/25 03:49:
At 0237 patient appears to have converted from Junction to SR with frequent PACs, BBB, long QT which was corroborated by EKG. No significant change to BP noted.
Original Note:
Patient reassessed. Vital signs stable. Levo tapered to 4. N/V from earlier appears to have resolved. Patient still reports no pain, but does report trouble sleeping. Patient repositioned to optimize comfort. AM EKG obtained. AM hygiene care
provided. Labs obtained. HF eduction provided.
--- NOTE | 2025-05-07 03:58 | W.PN.CT ---
Today's Communication / Plan
-
Plan:
-No major issues overnight. Hemodynamically and neurologically intact
-Successfully extubated on 05/06/25 @ 1832
-Dobutamine weaned to 3 mcg/kg min from 5, Levophed weaned from 8 to off @ 0515, insulin gtt per protocol, vasopressin weaned off overnight
-Last CI 2.8, MVO2 59.4%, u/o since OR 900 mL
-Current rhythm is NSR with PAC's @ 75 bpm
-Monitor chest tube drainage: 2med 225/425. CXR looks clear on my assessment, f/u official report
-Cont. current meds (ASA, Lipitor, Amiodarone and Lopressor currently on hold)
-Wean off dobutamine and Levophed as tolerated
-Will d/c swan and a-line when off pressor/inotrope
-Maintain parrish catheter for accurate I/O's while on dobutamine
-Will transition off insulin drip today per protocol
-Maintain temporary PW
-Maintain cordis
-Encourage use of IS
-Wean off of O2 as tolerated
-OOB into chair
-Ambulate
Assessment / Plan
-
Assessment:
-S/P Sternotomy/Radical mitral valve repair [triangular dissection at P1 with sliding plasty onto the commisure with the remnant P1 leaflet and cleft closure of P1 P2, 34 mm band annuloplasty]/Surgical aortic valve replacement [29 mm
bioprosthesis]/Left atrial maze [RF ablation and cryoablation]/ Left atrial appendage exclusion, by Dr. Sauceda, 05/06/25, pod#1
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
-Moderate aortic valve insufficiency secondary to leaflet pathology at the noncoronary cusp commissure, fenestrations
-Paroxysmal atrial fibrillation (on Eliquis @ home)
-S/P RAOUL cardioversion on 03/31
-LVEF 60% per introp RAOUL
-Acute on chronic diastolic CHG
-HLD
-S/p inguinal herniorrhaphy x 3
-S/P Joyce
-S/P Left knee arthroscopy
-Acute postop blood loss/Anemia (stable)
-Acute postop thrombocytopenia (stable without active bleed)
-Acute postop atelectasis with fever
-Acute postop hypovolemia with subsequent hypervolemia
-Acute postop accelerated junctional rhythm
-Acute postop sinus with PAC's
Discussed patient care with: Cardiology, Nursing, Respiratory Therapy, Pharmacy and Care Team
Subjective
Procedure
-S/P Sternotomy/Radical mitral valve repair [triangular dissection at P1 with sliding plasty onto the commisure with the remnant P1 leaflet and cleft closure of P1 P2, 34 mm band annuloplasty]/Surgical aortic valve replacement [29 mm
bioprosthesis]/Left atrial maze [RF ablation and cryoablation]/ Left atrial appendage exclusion, by Dr. Sauceda, 05/06/25
-
Date of Service: May 07, 2025
Pt c/o incisional pain, otherwise feels well
Objective Data
-
PT 17.9 Sec (11.4-14.6) H 05/06/25 13:44
INR 1.45 05/06/25 13:44
APTT 34.3 Sec (23.4-35.0) 05/06/25 13:44
Vital Signs
Vital Signs
Temp Pulse Resp BP Pulse Ox
100.2 F 85 18 93/56 95
05/07/25 03:11 05/07/25 03:35 05/07/25 03:35 05/07/25 03:00 05/07/25 03:35
CT Intake/Output/Weight
05/06/25 05/06/25 05/07/25
06:59 18:59 06:59
Intake Total 1543.0 / 2093.3 550.3 / 2093.3
Output Total 620 / 1270 650 / 1270
Balance 923.0 / 823.3 -99.7 / 823.3
SaO2: 95 (2L)
Physical Exam
-
General: Awake, Oriented and AOx3
Cardiovascular: Irregular rate & rhythm (sinus with PAC's)
Respiratory: Decreased Breath Sounds (at bases, otherwise clear)
Sternum: Stable
Incision: Clean, Dry, Intact and Dressing Intact
Extremities: Other (+trace edema)
Data Reviewed
-
Lab Results: Results Reviewed
Medications: Active Meds Reviewed
Chest X-Ray: Report Reviewed and Image Reviewed
ECG: Report Reviewed and Image Reviewed
[2025-05-07 04:00] LABS: Hematocrit 27.3 % (39.0-52.0); Hemoglobin 9.3 g/dL (13.0-18.0); Mean Corp Hgb Conc. 34.1 g/dL (33.0-37.0); Mean Corpuscular Volume 93.5 fL (80.0-94.0); Platelet Count 100 10^3/uL (130-400); Red Cell Dist. Width 13.2 % (11.5-14.5)
[2025-05-07 04:11] LABS: INR 1.29; PT 16.4 Sec (11.4-14.6)
[2025-05-07 04:18] LABS: Glucose - Point of Care 105 mg/dl (70-99)
[2025-05-07 04:26] LABS: Blood Urea Nitrogen 20 mg/dl (9-20); Calcium 8.5 mg/dl (8.4-10.2); Carbon Dioxide 25 mmol/L (22-30); Chloride 111 mmol/L (98-107); Estimated Creatinine Clearance 65 ml/min; Glucose 109 mg/dl (70-99); Magnesium 2.2 mg/dl (1.6-2.3); Potassium 4.5 mmol/L (3.5-5.1); Sodium 139 mmol/L (135-145); eGFR > 60.00
[2025-05-07] MEDS: CALCIUM GLUCONATE 130 MG IV (04:50)
--- NOTE | 2025-05-07 05:54 | PTCARENOTE ---
Additional 3g CaGluconate repletion. BP high following XR SBP>140. Levo turned off 30 mins later SBP 100s. Per CT PA patient to remain lined and in bed this morning.
[2025-05-07 06:10] LABS: Glucose - Point of Care 113 mg/dl (70-99)
[2025-05-07] MEDS: TYLENOL 1000 MG PO ×3 (06:25→22:17)
[2025-05-07] MEDS: NOVOLIN R INSULIN INFUSION 100 IV (07:36)
--- NOTE | 2025-05-07 07:46 | W.PN.INTV ---
Today's Communication / Plan
Recommendations
Tolerated extubation
Wean FiO2
Increase activity
Wean dobutamine and norepinephrine
Increase activity
Likely will be weaned off insulin drip and transferred to telemetry-at that point iron handler will sign off-call pulmonary if respiratory issues arise
Assessment
-
70-year-old male with a history of atrial fibrillation, CHF, mitral valve regurgitation found to have significant mitral regurgitation and underwent mitral valve repair/replacement, LA - MAZE -iron handler consulted for postoperative
ventilator/critical care management 05/06/2025.
Severe mitral regurgitation
Status post mitral valve repair/MAZE/AVR/clip-Dr. Sauceda 05/06/2025
Small incidental pulmonary nodules
Conditions present prior to admission:
Atrial fibrillation.
Mitral valve regurgitation.
History CHF.
Cholecystectomy.
Hernia repair x 3.
Left knee arthroscopy.
Plan
Tolerated extubation
Wean FiO2
Encourage incentive spirometry
Increase activity
Aspiration precautions
Pulmonary artery catheter and arterial line will be removed
Pressors have been weaned
Continue to monitor chest tube output
Follow hemoglobin
Continue to follow platelet count and coags
Transfuse blood product as needed
CT surgery following chest tubes as well
Follow blood sugar
Insulin supplementation continues as needed
Early nutrition
Early mobilization
DVT prophylaxis
Follow-up CT chest in 1 year to ensure nodular stability-patient told of incidental findings and need for follow-up to ensure nodular stability
Patient will likely be weaned off insulin drip and will be transferred to telemetry phase-call pulmonary if respiratory issues arise
Reviewed the patient�s pertinent medical records including radiographs, microbiology, laboratory evaluations, and��discussion with primary team, and critical care nursing.
Diagnostic data:
CT chest 04/25/2025-mild ectasia of the ascending aorta measuring 4 cm, no pericardial effusion, small lung nodules and parenchymal opacifications largest nodule measuring 4.8 mm
Cardiac catheterization 04/30/2025-severe mitral regurgitation, moderate aortic valve insufficiency, mid LAD irregularities and 30% distal LAD lesion
Subjective Dataa
Subjective Data
Date of Service:
Date of Service: May 07, 2025
Chief Complaint: Hand Carver Follow Up and Vent Management Follow Up
Subjective:
Tolerated extubation, no complaints of shortness of breath, pain controlled, chest tubes not dumping, on dobutamine but no other pressors
Review of Systems
General: Other (Per HPI)
Objective Data
Data Reviewed
Vital Signs / I&O / Oxygen:
Vital Signs
Temp Pulse Resp BP Pulse Ox
99.7 F 80 16 96/66 93
05/07/25 07:00 05/07/25 07:20 05/07/25 07:20 05/07/25 07:00 05/07/25 07:15
Intake and Output
05/06/25 05/07/25 05/08/25
06:59 06:59 06:59
Intake Total 2179.0 / 2241.1 62.1 / 62.1
Output Total 1385 / 1445 60 / 60
Balance 794.0 / 796.1 2.1 / 2.1
SaO2 [CPAP] 94
SaO2 [SIMV] 96
SaO2 93
Nasal Cannula flow liters per 2
minute
Physical Exam
General: Respiratory Distress (n) and Comfortable
HEENT: Normocephalic, Anicteric and Moist Mucous Membranes
Cardiovascular: Regular Rhythm
Respiratory: Wheeze (n), Crackles (Rare basilar), Rhonchi (n), Non-Labored Respirations, Accessory Resp Muscle Use (n) and Stridor (n)
GI: Soft, Non Distended and Non Tender
Neurology: Awake, Alert and No Motor Deficits
Skin: Warm, Good Color, Cyanosis (n), Jaundice (n) and Rash (n)
Labs/Micro/Reports
Lab Data
05/07/25 03:32
05/07/25 03:32
Laboratory Results
05/06/25 05/06/25 05/06/25
13:44 14:32 20:11
PT 17.9 H
INR 1.45
APTT 34.3
pH 7.29 L 7.32 L 7.46 H
pCO2 50 H 49 H 35
pO2 109 H 96 80 L
HCO3 24.0 25.2 24.9
O2 Delivery Level
05/07/25
03:32
PT 16.4 H
INR 1.29
APTT
pH
pCO2
pO2
HCO3
O2 Delivery Level
--- NOTE | 2025-05-07 07:56 | W.PN.CD ---
Today's Communication / Plan
-
Continue post operative management.
Titrate pressors/inotropes for MAP > 65 mmHg, CI > 1.8 L/min/m2.
Pain/chest tube management per CTS.
Incentive spirometry.
Ambulate when appropriate.
No role for diuretics yet.
Impression / Plan
-
Impression/Plan: 70 y/o male with HLD, PAF, severe degenerative MR and moderate AI leading to an admission for HFpEF ([facility]) admitted for elective multivalve repair/replacement.
#Severe degenerative MR
-Chronic, progressive.
-S/P MVR (triangular dissection at P1 with sliding plasty onto the commissure with the remnant P1 leaflet and cleft closure of P1 P2, #34 Alba PhysioFlex band, serial #[id number]) with Dr. Sauceda, 05/06/2025.
-Continue routine post operative management.
-Wean vent to extubated.
-Titrate pressors/inotropes for a MAP > 65 mmHg, CI > 1.8 L/min/m2.
-Pain/chest tube management per CTS.
#Moderate AI
-Chronic, progressive.
-S/P SAVR (#29 Alba Inspiris Resilia, serial #[id number]) with Dr. Sauceda, 05/06/2025.
-Post operative management as above.
#PAF
-Paroxysmal, likely precipitated/exacerbated by severe MR.
-S/P LAAE (#40 AtriClip, serial #[id number]) with Dr. Sauceda, 05/06/2025.
-Currently in NSR.
-Rate/rhythm control with amiodarone.
-CHADS2-Vasc = 2 (CHF, Age x1).
-Primary prevention with LAAE. Resume therapeutic anticoagulation after deemed safe with CT surgery.
#HFpEF
-Chronic, likely exacerbated by severe MR.
-We will discuss diuretics as his hemodynamics stabilize.
-GDMT as hemodynamics will tolerate:
-Diuretics: On hold.
-Beta carlie: On hold.
-ACEI/ARB/ARNi: On hold.
-MRA: On hold.
-SGLT2i: On hold.
-ICD: Not currently indicated.
Critical Care Time = 48 minutes.
Subjective/Interval History:
Surgery yesterday.
Extubated 05/06/2025 @ 18:32.
Norepinephrine weaned. Remains on dobutamine at 3 mcg/kg/min.
Patient struggled with junctional escape coupled with hypotension.
Converted to NSR overnight.
Febrile to 38.4 at 21:08.
Defervesced at 03:11.
Weight up 3.5 kg from yesterday (99.7 <-- 96.2).
BP remains tenuous, 85/67 mmHg at 07:00. MAP on A-Line 54-57 mmHg.
RAP = 1-2 mmHg.
CI = 3.21 L/min/m2 @ 07:00
SaO2 = 93% on 2LNC.
DATA:
CT Surgery, 05/06/2025:
Procedure(s) Performed:
1. Standard sternotomy and aortic and bicaval cannulation
2. Radical mitral valve repair [triangular dissection at P1 with sliding plasty onto the commissure with the remnant P1 leaflet and cleft closure of P1 P2, 34 mm band annuloplasty]
3. Surgical aortic valve replacement [29 mm bioprosthesis]
4. Left atrial maze [RF ablation and cryoablation]
5. Left atrial appendage exclusion
6. Placement of temporary atrial and ventricular pacing wires
7. Transesophageal cardiography
Cardiac Catheterization, 04/30/2025:
CONCLUSIONS
1. Right dominant circulation with luminal irregularities in the mid LAD and a 30% lesion in the distal LAD.
2. Severe mitral valve regurgitation on echocardiography.
3. Moderate aortic valve insufficiency on echocardiography.
Physical Exam
Vital Signs/Labs
Vital Signs
Temp Pulse Resp BP Pulse Ox
37.6 C 80 16 96/66 93
05/07/25 07:00 05/07/25 07:20 05/07/25 07:20 05/07/25 07:00 05/07/25 07:15
05/05/25 05/06/25 05/07/25
11:59 11:59 11:59
Actual Weight 96.2 kg 99.7 kg
05/07/25 03:32
05/07/25 03:32
PT 16.4 Sec (11.4-14.6) H 05/07/25 03:32
INR 1.29 05/07/25 03:32
APTT 34.3 Sec (23.4-35.0) 05/06/25 13:44
Magnesium 2.2 mg/dl (1.6-2.3) 05/07/25 03:32
Physical Exam
Constitutional: No acute distress and Comfortable
EENT: Anicteric and Moist mucous membranes
Cardiovascular: Rhythm & rate is regular, S1S2 is normal and Murmur/rub/gallop absent
Respiratory: Respiratory effort normal and Other (Decreased throughout.)
GI: Soft, Distention absent, Flat, Non tender and Normal bowel sounds
Neuro/Psych: AO x 3
Data Reviewed
-
Date of Service: May 07, 2025
Medical Decision Making: Reviewed Test Results, Independent Historian Assessment and Test Interpretation
EKG: Tracing Personally Visualized and interpreted and Report Reviewed by me
Echo: Report Reviewed by me
X-Ray/CT/US/MRI/NUC/PET: Image Personally Visualized and interpreted and Report Reviewed by me
Medical Tests (PFT, Pathology etc): Image Personally Visualized and interpreted and Report Reviewed by me
Labs: Labs Reviewed by me
Old Records: Reviewed
[2025-05-07 08:00] LABS: Glucose - Point of Care 111 mg/dl (70-99)
--- NOTE | 2025-05-07 08:00 | PTCARENOTE ---
pt received from previous RN, oriented, in bed. SR w/ 1st degree AVB/BBB/ prolonged QT w/ PACs, HR 60-70s. A&V wires in place. SBP 90-110s. PAP 20-30s/10s, CVP ~3. CI >2, Dobutamine gtt running as ordered. palpable pulses, no edema. pt on 2LNC, 96%
POX. lungs clear, diminished in bases. IS encouraged. CTx2, no air leak or crepitus. pt abdomen s/n, denies n/v. hypoactive BS. clears tolerated. Montoya in place, clear yellow urine. sternal incision HANNAH, approximated. chest tube dressing c/d/i. RIJ
Cordis/swan maintained. L radial Burnet flushed, zeroed, and calibrated. PIV. insulin gtt running as ordered. see worklist for VS, I&O, and assessment.
--- NOTE | 2025-05-07 08:11 | W.PN.ANS.POP ---
Anesthesia Post Operative
- Anesthesia Post Op Note
Vital Signs Stable-See Nursing Note: Yes
Airway Patent: Yes
Adequate Pain Control: Yes
Change in Mental Status: No
Current Postoperative Nausea & Vomiting: No
Anesthesia Complications: No
General Anesthetic Recall: No
Unplanned Admission: No
Post Op Hydration Adequate: Yes
[2025-05-07] MEDS: PACERONE 200 MG PO ×3 (08:52→22:17)
[2025-05-07] MEDS: PROTONIX 40 MG PO (08:52)
[2025-05-07] MEDS: MAGNESIUM OXIDE 400 MG PO ×2 (08:52→19:36)
[2025-05-07] MEDS: SENOKOT-S 1 TABLET PO ×2 (08:52→19:38)
[2025-05-07] MEDS: NEURONTIN 100 MG PO ×3 (08:52→22:17)
[2025-05-07] MEDS: LOW STRENGTH ASPIRIN 81 MG PO (08:52)
[2025-05-07] MEDS: LIDOCAINE 4% PATCH 1 PATCH TOPICAL (08:52)
[2025-05-07] MEDS: BACTROBAN 2% OINTMENT 1 APPLIC NASAL ×2 (08:53→19:37)
--- NOTE | 2025-05-07 11:17 | CM ---
Chart reviewed. Patient's daughter at bedside. Patient is independent of ADLS, lives with his in a 2 [address], 1st level set up, 3 [place], 0 DME. Plan is for the patient to return home with CT Transitional RN. CM to follow
[2025-05-07] MEDS: DOBUTREX 500 MG 250 IV (11:20)
[2025-05-07] MEDS: NSS IV (11:21)
[2025-05-07 11:49] LABS: Glucose - Point of Care 79 mg/dl (70-99)
[2025-05-07 11:49] LABS: Glucose - Point of Care 105 mg/dl (70-99)
[2025-05-07 12:12] LABS: Glucose - Point of Care 95 mg/dl (70-99)
--- NOTE | 2025-05-07 12:21 | PTCARENOTE ---
pt VSS, pt offers no c/o pain. Dobutamine @2mcg/kg/min, MVO2 drawn as ordered. oral hygiene performed. chest tube dressing changed. BOOK CLEANER aware of UO.
[2025-05-07 13:14] LABS: Glucose - Point of Care 100 mg/dl (70-99)
[2025-05-07] MEDS: LR 250 ML IV (13:16)
[2025-05-07] MEDS: FERRLECIT 110 MG IV (14:07)
[2025-05-07 14:08] LABS: Glucose - Point of Care 126 mg/dl (70-99)
[2025-05-07] MEDS: CORDARONE 103 MG IV (15:04)
--- NOTE | 2025-05-07 15:24 | PTCARENOTE ---
pt VSS, Dobutamine gtt running as ordered. SECURITY SYSTEMS TECHNICIAN aware of frequent ectopy, Amiodarone bolus given as ordered. insulin gtt dc'd as ordered. no c/o pain, denies n/v. IS encouraged.
[2025-05-07] MEDS: FLEXBUMIN 100 IV (16:45)
--- NOTE | 2025-05-07 18:24 | PTCARENOTE ---
PRESIDENT [employer]UC[employer] IN[employer] aware of UO, Albumin 25% given as ordered. MVO2 drawn and sent.
[2025-05-07] MEDS: ULTRAM 50 MG PO (19:36)
[2025-05-07] MEDS: REMOVE LIDOCAINE PATCH 1 PATCH REMOVE (19:36)
--- NOTE | 2025-05-07 20:00 | PTCARENOTE ---
Assumed care of patient at 1900. Patient found resting in bed at time of assessment. Patient is AOx4, follows commands appropriately, moves all extremities. Lung sounds are diminished at the bases, saO2 98% on RA, CTx2: 2xmeds draining red
sanguineous to one atrium. Heart sounds are audible, patient is SR with first deg AV block BBB and long QT. A+V wires are present temp PM set to AAI settings. Patient has normal palpable pulses and trace generalized edema. Patient has hypoactive BS
and there is a parrish present draining clear almaz urine. Patient has sternal incision approx with surg adhesive HANNAH and 4x4 gauze dressing over CT wounds that is CDI. Patient has R IJ cordis with swan@45cm, L radial miguel ángel, and R AC 18G PIV. Patient
receiving cordis/VIP KVO. Patient c/o moderate pain given tramadol 50 per orders. VSS. Call tavera within reach.
[2025-05-07] MEDS: LIPITOR 80 MG PO (22:17)
[2025-05-08] VITALS (26 sets, daily range): BP systolic 84–130; BP diastolic 54–86; PULSE 63–66; O2SAT 96; BMI 28.3
[2025-05-08] MEDS: ALBUMIN 5% 250 IV (00:06)
--- NOTE | 2025-05-08 01:00 | PTCARENOTE ---
Patient reassessed. VSS. Remains SR with first deg AV block, BBB, long QT. Given additional 250cc albumin per CT PA for hypotension decreased UOP. Pending MVO2. CI 2.65. Call tavera within reach.
[2025-05-08 03:27] LABS: Hematocrit 22.9 % (39.0-52.0); Hemoglobin 7.8 g/dL (13.0-18.0); Mean Corp Hgb Conc. 34.1 g/dL (33.0-37.0); Mean Corpuscular Volume 92.7 fL (80.0-94.0); Platelet Count 74 10^3/uL (130-400); Red Cell Dist. Width 13.4 % (11.5-14.5)
[2025-05-08 03:43] LABS: Blood Urea Nitrogen 28 mg/dl (9-20); Calcium 8.7 mg/dl (8.4-10.2); Carbon Dioxide 26 mmol/L (22-30); Chloride 107 mmol/L (98-107); Estimated Creatinine Clearance 71 ml/min; Glucose 141 mg/dl (70-99); Magnesium 2.2 mg/dl (1.6-2.3); Potassium 4.5 mmol/L (3.5-5.1); Sodium 136 mmol/L (135-145); eGFR > 60.00
--- NOTE | 2025-05-08 05:00 | PTCARENOTE ---
Patient reassessed. VSS. No c/o pain. AM labs obtained. AM hygiene care provided. Patient with ~2 second pause at [address]106 [address] PA aware. Low hgb with AM labs CT PA notified. Awaiting CT surgeon input for delining. Call tavera within reach.
--- NOTE | 2025-05-08 05:33 | W.PN.CT ---
Today's Communication / Plan
-
-pod #2
-mild hypotension/low UO overnight - improved with 250 Albumin
-Dobut off at 6 pm on 05/07. Off Dobutamine, mvO2 64.4, CI 2.73, CO 6.09, SVR 813
-No drips
-deline
-in nsr high 50s with PACs, PVCs
-Hg 7.8 today (9.3 on 05/07)
-follow platelets - 74K today (100K on 05/07)- ? continue ASA
-CT outputs: 2 meds 120/305 in 12/24 hrs
-follow I&O, has Montoya- likely d/c soon. Cr is stable - 1.1 today (1.2 on 05/07 and 1.2 preop)
-Cont. current meds (ASA, Lipitor, Amiodarone po, Protonix). Holding BB d/t junctional rhythm earlier postop
-maintain pw
-maintain Cordis
-encourage IS, OOB
Assessment / Plan
-
Assessment:
-S/P Sternotomy/Radical mitral valve repair [triangular dissection at P1 with sliding plasty onto the commisure with the remnant P1 leaflet and cleft closure of P1 P2, 34 mm band annuloplasty]/Surgical aortic valve replacement [29 mm
bioprosthesis]/Left atrial maze [RF ablation and cryoablation]/ Left atrial appendage exclusion, by Dr. Sauceda, 05/06/25, pod#2
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
-Moderate aortic valve insufficiency secondary to leaflet pathology at the noncoronary cusp commissure, fenestrations
-Paroxysmal atrial fibrillation (on Eliquis @ home)
-S/P RAOUL cardioversion on 03/31
-LVEF 60% per introp RAOUL
-Acute on chronic diastolic CHG
-HLD
-S/p inguinal herniorrhaphy x 3
-S/P Joyce
-S/P Left knee arthroscopy
-Acute postop blood loss/Anemia (stable)
-Acute postop thrombocytopenia (without active bleed)
-Acute on chronic rapid a-fib postop 05/06, requiring CV d/t hypotension, then accelerated junctional rhythm 90s, requiring d/c of iv Amio
-Acute postop atelectasis with fever
-Acute postop hypovolemia with subsequent hypervolemia
-Acute postop accelerated junctional rhythm
-Acute postop sinus with PAC's
Discussed patient care with: Nursing and Care Team
Subjective
Procedure
-S/P Sternotomy/Radical mitral valve repair [triangular dissection at P1 with sliding plasty onto the commisure with the remnant P1 leaflet and cleft closure of P1 P2, 34 mm band annuloplasty]/Surgical aortic valve replacement [29 mm
bioprosthesis]/Left atrial maze [RF ablation and cryoablation]/ Left atrial appendage exclusion, by Dr. Sauceda, 05/06/25
-
Date of Service: May 08, 2025
Objective Data
-
PT 16.4 Sec (11.4-14.6) H 05/07/25 03:32
INR 1.29 05/07/25 03:32
APTT 34.3 Sec (23.4-35.0) 05/06/25 13:44
Vital Signs
Vital Signs
Temp Pulse Resp BP Pulse Ox
98.7 F 65 15 106/73 95
05/08/25 00:12 05/07/25 22:15 05/08/25 00:12 05/07/25 22:00 05/08/25 00:12
CT Intake/Output/Weight
05/07/25 05/07/25 05/08/25
06:59 18:59 06:59
Intake Total 636.0 / 2241.1 990.5 / 1170.5 180 / 1170.5
Output Total 765 / 1445 540 / 865 325 / 865
Balance -129.0 / 796.1 450.5 / 305.5 -145 / 305.5
SaO2: 95
Physical Exam
-
General: Awake and AOx3
Cardiovascular: Regular rate & rhythm, No Murmurs and No Rub
Respiratory: Decreased Breath Sounds
Sternum: Stable
Incision: Clean, Dry and Intact
Extremities: No Edema (2+DPs b/l)
Abdomen: soft, nontender, nondistended, + decreased bowel sounds
Data Reviewed
-
Lab Results: Results Reviewed
Medications: Active Meds Reviewed
Chest X-Ray: Report Reviewed and Image Reviewed
ECG: Report Reviewed and Image Reviewed
[2025-05-08] MEDS: TYLENOL 1000 MG PO ×3 (05:37→21:31)
[2025-05-08] MEDS: LASIX 40 MG IV ×2 (06:22→12:36)
--- NOTE | 2025-05-08 07:20 | PTCARENOTE ---
Received orders to deline swan. Morris to remain in place. Possibly fluid overloaded patient given 40 IV lasix. Montoya to remain in place.
[2025-05-08] MEDS: LIDOCAINE 4% PATCH TOPICAL (07:22)
--- NOTE | 2025-05-08 08:00 | PTCARENOTE ---
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 Junctional rhythm noted via cm, SaO2 @ 95% on RA. RIJ Cordis w/kvo infusing. Epicardial A+V wires to back up rate AAI @ 30. L radial arterial line
present - leveled, flushed, and calibrated w/good waveform returned. Mediastinal chest tubes x 2, Y-connected to one pleurevac, set to -20cm suction w/no air leak noted. Montoya catheter to gravity. All procedural sites stable. Daughter at bedside.
Dr. Sauceda and CT team to bedside, patient updated to plan of care for the day, in agreement. See work list for full assessment and interventions performed.
[2025-05-08] MEDS: PROTONIX 40 MG PO (08:26)
[2025-05-08] MEDS: NEURONTIN 100 MG PO (08:26)
[2025-05-08] MEDS: SENOKOT-S 1 TABLET PO ×2 (08:26→20:17)
[2025-05-08] MEDS: BACTROBAN 2% OINTMENT 1 APPLIC NASAL ×2 (08:26→20:18)
[2025-05-08] MEDS: MAGNESIUM OXIDE 400 MG PO ×2 (08:27→20:18)
[2025-05-08] MEDS: PACERONE 200 MG PO (08:27)
--- NOTE | 2025-05-08 08:55 | W.PN.CD ---
Today's Communication / Plan
-
transfusion and diuresis
routine post op care
Impression / Plan
-
Impression/Plan: 70 y/o male with HLD, PAF, severe degenerative MR and moderate AI leading to an admission for HFpEF ([facility]) admitted for elective multivalve repair/replacement.
#Severe degenerative MR
-Chronic, progressive.
-S/P MVR (triangular dissection at P1 with sliding plasty onto the commissure with the remnant P1 leaflet and cleft closure of P1 P2, #34 Alba PhysioFlex band, serial #[id number]) with Dr. Sauceda, 05/06/2025.
-Continue routine post operative management.
-Extubated and off drips
-Mildly hypotensive and lightheaded with standing
-post op anemia --> recommend blood transfusion followed by diuresis
#Moderate AI
-Chronic, progressive.
-S/P SAVR (#29 Alba Inspiris Resilia, serial #[id number]) with Dr. Sauceda, 05/06/2025.
-Post operative management as above.
#PAF
-Paroxysmal, likely precipitated/exacerbated by severe MR.
-S/P LAAE (#40 AtriClip, serial #[id number]) with Dr. Sauceda, 05/06/2025.
-Currently in NSR.
-Rate/rhythm control with amiodarone.
-CHADS2-Vasc = 2 (CHF, Age x1).
-Primary prevention with LAAE. Resume therapeutic anticoagulation after deemed safe with CT surgery.
#HFpEF
-Chronic, likely exacerbated by severe MR.
-We will discuss diuretics as his hemodynamics stabilize.
-GDMT as hemodynamics will tolerate:
-Diuretics: On hold.
-Beta carlie: On hold.
-ACEI/ARB/ARNi: On hold.
-MRA: On hold.
-SGLT2i: On hold.
-ICD: Not currently indicated.
Subjective/Interval History:
Extubated and off drips with MVO2 > 60 which in setting of amemia suggests normal CO/CI
Converted to NSR overnight
remains with chest tube, cordis, Alexandra in place
mildly orthostatic when standing
blood pressures borderline
DATA:
CT Surgery, 05/06/2025:
Procedure(s) Performed:
1. Standard sternotomy and aortic and bicaval cannulation
2. Radical mitral valve repair [triangular dissection at P1 with sliding plasty onto the commissure with the remnant P1 leaflet and cleft closure of P1 P2, 34 mm band annuloplasty]
3. Surgical aortic valve replacement [29 mm bioprosthesis]
4. Left atrial maze [RF ablation and cryoablation]
5. Left atrial appendage exclusion
6. Placement of temporary atrial and ventricular pacing wires
7. Transesophageal cardiography
Cardiac Catheterization, 04/30/2025:
CONCLUSIONS
1. Right dominant circulation with luminal irregularities in the mid LAD and a 30% lesion in the distal LAD.
2. Severe mitral valve regurgitation on echocardiography.
3. Moderate aortic valve insufficiency on echocardiography.
Physical Exam
Vital Signs/Labs
Vital Signs
Temp Pulse Resp BP Pulse Ox
36.6 C 64 16 106/49 95
05/08/25 08:00 05/08/25 08:27 05/08/25 08:00 05/08/25 08:27 05/08/25 08:34
05/07/25 05/08/25 05/09/25
06:59 06:59 06:59
Actual Weight 99.7 kg 99.8 kg
05/08/25 03:08
05/08/25 03:08
PT 16.4 Sec (11.4-14.6) H 05/07/25 03:32
INR 1.29 05/07/25 03:32
APTT 34.3 Sec (23.4-35.0) 05/06/25 13:44
Magnesium 2.2 mg/dl (1.6-2.3) 05/08/25 03:08
Physical Exam
Constitutional: Comfortable
Cardiovascular: Rhythm & rate is regular
Respiratory: Respiratory effort normal
Neuro/Psych: AO x 3
Data Reviewed
-
Date of Service: May 08, 2025
Medical Decision Making: Reviewed Test Results
EKG: Tracing Personally Visualized and interpreted
Labs: Labs Reviewed by me
--- NOTE | 2025-05-08 11:02 | CM ---
Chart reviewed. Patient OOB sitting in the chair, at bedside. Patient is independent of ADLS, lives with his in a 2 STH, 1st level set up, 3 KALPANA, 0 DME. Plan is for the patient to return home with CT Transitional. CM to follow
--- NOTE | 2025-05-08 12:20 | PTCARENOTE ---
Ordered unit prbc's completed. Chest tubes, arterial line d/c'd as ordered, patient tolerated well. VS stable. at bedside, assisting patient to order lunch.
[2025-05-08] MEDS: NSS 500 IV (12:36)
[2025-05-08] MEDS: FERRLECIT 110 MG IV (13:46)
[2025-05-08] MEDS: KCL 40 MEQ PO (16:04)
--- NOTE | 2025-05-08 16:10 | PTCARENOTE ---
VS obtained, assessment stable. Denies dizziness. CANDACE Bridger updated to BP, advised nursing to hold afternoon dose amiodarone. Remains oob in chair, visiting with family.
[2025-05-08] MEDS: PACERONE PO (17:39)
[2025-05-08] MEDS: REMOVE LIDOCAINE PATCH REMOVE (20:17)
--- NOTE | 2025-05-08 21:18 | PTCARENOTE ---
Assumed care of patient at 1900. Patient found oob in chair at time of assessment. Patient is Aox4, follows commands appropriately, moves all extremities. Lung sounds are clear and equal bilaterally, saO2 97% on RA, IS 1750. Heart sounds are
audible, patient is SR with BBB 1st deg AV block. Normal palpable pulses and there appears to be trace edema present in patient's trunk. A+V wires are present but insulated. Patient has active BS in all four quadrants and is DTV bladder scan for 267
at 2000. Patient has sternal incision approx with surg adhesive GIS DEVELOPER and ABD dressing over CT wounds that is CDI. Patient has R IJ cordis receiving KVO and R AC 18G for intermittent infusion. Patient has no c/o pain. VSS. Call tavera within reach.
[2025-05-08] MEDS: LIPITOR 80 MG PO (21:31)
[2025-05-08] MEDS: MELATONIN 5 MG PO (21:31)
[2025-05-09] VITALS (12 sets, daily range): BP systolic 98–152; BP diastolic 57–125; PULSE 64; O2SAT 93–98; BMI 28.6
--- NOTE | 2025-05-09 | PTCARENOTE ---
Patient reassessed. VSS. No c/o pain. Patient given melatonin to help with sleep. Remains SR 1st deg AV block BBB on the monitor. Call tavera within reach.
--- NOTE | 2025-05-09 02:00 | PTCARENOTE ---
At 0125 patient has 11 beat run of vtach. Patient asymptomatic on assessment. Broke out of rhythm spontaneously. CT PA aware. No new orders at this time.
[2025-05-09 03:26] LABS: Hematocrit 23.1 % (39.0-52.0); Hemoglobin 7.8 g/dL (13.0-18.0); Mean Corp Hgb Conc. 33.8 g/dL (33.0-37.0); Mean Corpuscular Volume 92.8 fL (80.0-94.0); Platelet Count 72 10^3/uL (130-400); Red Cell Dist. Width 14.3 % (11.5-14.5)
[2025-05-09 03:42] LABS: Blood Urea Nitrogen 30 mg/dl (9-20); Calcium 8.2 mg/dl (8.4-10.2); Carbon Dioxide 28 mmol/L (22-30); Chloride 106 mmol/L (98-107); Estimated Creatinine Clearance 71 ml/min; Glucose 126 mg/dl (70-99); Magnesium 2.2 mg/dl (1.6-2.3); Potassium 4.3 mmol/L (3.5-5.1); Sodium 136 mmol/L (135-145); eGFR > 60.00
--- NOTE | 2025-05-09 03:59 | W.PN.CT ---
Today's Communication / Plan
-
-pod #3
-feels and looks better overall
-had 11 beat NSVT overnight - asymptomatic, sleeping
-sinus juve low 50s overnight with long 1st degree AVB- holding BB and Amio.
-s/p 1 pRBC on 05/08
-diuresed well with bid 40 iv Lasix on 05/08 (UO 1730)- continue Lasix bid today (looks volume overloaded on exam)
-holding ASA for low platelets- 72K today (74K on 05/08)- follow
-holding Gabapentin for lightheadedness
-Echo today
-maintain pw
-? maintain Cordis in case of a-fib
-encourage IS, ambulate
Assessment / Plan
-
Assessment:
-S/P Sternotomy/Radical mitral valve repair [triangular dissection at P1 with sliding plasty onto the commisure with the remnant P1 leaflet and cleft closure of P1 P2, 34 mm band annuloplasty]/Surgical aortic valve replacement [29 mm
bioprosthesis]/Left atrial maze [RF ablation and cryoablation]/ Left atrial appendage exclusion, by Dr. Sauceda, 05/06/25, pod#3
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
-Moderate aortic valve insufficiency secondary to leaflet pathology at the noncoronary cusp commissure, fenestrations
-Paroxysmal atrial fibrillation (on Eliquis @ home)
-S/P RAOUL cardioversion on 03/31
-LVEF 60% per introp RAOUL
-Acute on chronic diastolic CHG
-HLD
-S/p inguinal herniorrhaphy x 3
-S/P Joyce
-S/P Left knee arthroscopy
-Acute postop blood loss/Anemia (stable)
-Acute postop thrombocytopenia (without active bleed)
-Acute on chronic rapid a-fib postop 05/06, requiring CV d/t hypotension, then accelerated junctional rhythm 90s, requiring d/c of iv Amio
-Acute postop atelectasis with fever
-Acute postop hypovolemia with subsequent hypervolemia
-Acute postop accelerated junctional rhythm, bradycardia - held BB and Amio postop
-Acute postop sinus with PAC's
-11 beat NSVT 05/09, asymptomatic
Discussed patient care with: Nursing and Care Team
Subjective
Procedure
-S/P Sternotomy/Radical mitral valve repair [triangular dissection at P1 with sliding plasty onto the commisure with the remnant P1 leaflet and cleft closure of P1 P2, 34 mm band annuloplasty]/Surgical aortic valve replacement [29 mm
bioprosthesis]/Left atrial maze [RF ablation and cryoablation]/ Left atrial appendage exclusion, by Dr. Sauceda, 05/06/25
-
Date of Service: May 09, 2025
Objective Data
-
PT 16.4 Sec (11.4-14.6) H 05/07/25 03:32
INR 1.29 05/07/25 03:32
APTT 34.3 Sec (23.4-35.0) 05/06/25 13:44
Vital Signs
Vital Signs
Temp Pulse Resp BP Pulse Ox
97.8 F 53 18 97/67 97
05/08/25 23:00 05/09/25 00:00 05/08/25 23:00 05/08/25 22:09 05/09/25 00:00
CT Intake/Output/Weight
05/08/25 05/08/25 05/09/25
06:59 18:59 06:59
Intake Total 580 / 2060.5 1090 / 1170 80 / 1170
Output Total 650 / 1540 1790 / 5 275 / 2064
Balance -70 / 520.5 -700 / -895 -195 / -895
SaO2: 97
Physical Exam
-
General: Awake and AOx3
Cardiovascular: Regular rate & rhythm, No Murmurs and No Rub
Respiratory: Decreased Breath Sounds
Sternum: Stable
Incision: Clean, Dry and Intact
Abdomen: soft, nontender, nondistended, + decreased bowel sounds
Extremities: No Edema (2+DPs b/l)
Data Reviewed
-
Lab Results: Results Reviewed
Medications: Active Meds Reviewed
Chest X-Ray: Report Reviewed and Image Reviewed
ECG: Report Reviewed and Image Reviewed
--- NOTE | 2025-05-09 04:36 | PTCARENOTE ---
Patient reassessed. VSS. Patient is now SB with first deg AV block BBB. Patient placed on 2L overnight for desats while sleeping possible clarisse. AM labs obtained. AM hygiene care provided.
[2025-05-09] MEDS: TYLENOL 1000 MG PO ×3 (06:51→22:17)
--- NOTE | 2025-05-09 09:00 | PTCARENOTE ---
Assumed care of patient. Walking rounds completed with previous RN. Pt assessed while he was sitting in the chair. Pt alert and oriented x4. Pt denies pain, shortness of breath, and nausea. PAIGE with equal strength throughout. SR with 1st degree AVB
and BBB on tele with rates in the 60s. BP 102/59. Heart tones audible. Bilateral radial and DP pulses palpable. Generalized +1 edema. Epicardial AV wires insulated. POX 97% on RA. Lungs diminished in the bases R>L. Occasional nonproductive cough. IS
encouraged-2500mL achieved. Abdomen soft, round, nontender. +BS. Denies constipation. Due to void for this RN. Right IJ cordis intact infusing NSS KVO. Right AC 18g PIV intact. See MAR for medication administration. See worklist for complete nursing
assessment. Plan of care reviewed and patient in agreement.
[2025-05-09] MEDS: LASIX 40 MG IV ×2 (09:12→14:23)
[2025-05-09] MEDS: MAGNESIUM OXIDE 400 MG PO ×2 (09:13→20:59)
[2025-05-09] MEDS: LIDOCAINE 4% PATCH 1 PATCH TOPICAL (09:13)
[2025-05-09] MEDS: PROTONIX 40 MG PO (09:13)
[2025-05-09] MEDS: SENOKOT-S 1 TABLET PO ×2 (09:13→20:59)
[2025-05-09] MEDS: BACTROBAN 2% OINTMENT 1 APPLIC NASAL ×2 (09:13→20:59)
[2025-05-09] MEDS: NSS IV (09:14)
--- NOTE | 2025-05-09 10:27 | W.PN.CD ---
Today's Communication / Plan
-
IV lasix
trend tele
TTE today
resume eliquis when safe post op
Impression / Plan
-
Impression/Plan: 70 y/o male with HLD, PAF, severe degenerative MR and moderate AI leading to an admission for HFpEF ([facility]) admitted for elective multivalve repair/replacement.
#Severe degenerative MR
-Chronic, progressive.
-S/P MV repair (triangular dissection at P1 with sliding plasty onto the commissure with the remnant P1 leaflet and cleft closure of P1 P2, #34 Alba PhysioFlex band, serial #[id number]) with Dr. Sauceda, 05/06/2025
-EF 55-60% on RAOUL
#Moderate AI
-Chronic, progressive.
-S/P SAVR (#29 Alba Inspiris Resilia, serial #[id number]) with Dr. Sauceda, 05/06/2025.
#A Fib
-Paroxysmal,
-S/P LAAE (#40 AtriClip, serial #[id number]) with Dr. Sauceda, 05/06/2025.
-Currently in sinus, with one brief run NSVT. Amiodarone and metoprolol on hold for bradycardia
-CHADS2-Vasc = 2 (CHF, Age x1). resume eliquis when safe post op
-Primary prevention with LAAE.
#HFpEF
-acute on chronic
-continue IV lasix with close monitoring of labs/tele
DATA:
CT Surgery, 05/06/2025:
Procedure(s) Performed:
1. Standard sternotomy and aortic and bicaval cannulation
2. Radical mitral valve repair [triangular dissection at P1 with sliding plasty onto the commissure with the remnant P1 leaflet and cleft closure of P1 P2, 34 mm band annuloplasty]
3. Surgical aortic valve replacement [29 mm bioprosthesis]
4. Left atrial maze [RF ablation and cryoablation]
5. Left atrial appendage exclusion
6. Placement of temporary atrial and ventricular pacing wires
7. Transesophageal cardiography
Cardiac Catheterization, 04/30/2025:
CONCLUSIONS
1. Right dominant circulation with luminal irregularities in the mid LAD and a 30% lesion in the distal LAD.
2. Severe mitral valve regurgitation on echocardiography.
3. Moderate aortic valve insufficiency on echocardiography.
Physical Exam
Vital Signs/Labs
Vital Signs
Temp Pulse Resp BP Pulse Ox
98.2 F 61 16 102/59 97
05/09/25 08:00 05/09/25 10:00 05/09/25 08:00 05/09/25 09:05 05/09/25 09:05
05/08/25 05/09/25 05/10/25
06:59 06:59 06:59
Actual Weight 99.8 kg 100.8 kg
05/09/25 03:08
05/09/25 03:08
PT 16.4 Sec (11.4-14.6) H 05/07/25 03:32
INR 1.29 05/07/25 03:32
APTT 34.3 Sec (23.4-35.0) 05/06/25 13:44
Magnesium 2.2 mg/dl (1.6-2.3) 05/09/25 03:08
Physical Exam
Constitutional: No acute distress and Comfortable
EENT: Moist mucous membranes
Cardiovascular: Rhythm & rate is regular, Pedal edema is absent, JVD pressure is normal and Systolic murmur absent
Respiratory: Respiratory effort normal and Lungs clear to auscul.
Neuro/Psych: AO x 3
Data Reviewed
-
Date of Service: May 09, 2025
EKG: Other (Tele: SR/SB, 11 beats NSVT)
Labs: Labs Reviewed by me
--- NOTE | 2025-05-09 12:43 | PTCARENOTE ---
Pt reassessed. SR with 1st degree AVB and BBB with rates in the 60s. BP 104/65. POX 100% on RA. Surgical sites stable. Pt voiding adequate amounts of clear yellow urine. Education completed about low cholesterol diet. No other acute changes from
previous assessment.
--- NOTE | 2025-05-09 13:24 | CM ---
Chart reviewed. Patient OOB sitting in the chair, family at bedside. Patient is independent of ADLS, lives with his in a 2 STH, 1st level set up, 3 [place]AL[place], 0 DME. Plan is for the patient to return home with CT Transitional RN.
[2025-05-09] MEDS: FERRLECIT 110 MG IV (14:24)
--- NOTE | 2025-05-09 15:57 | PTCARENOTE ---
Pt reassessed. Denies dizziness & lightheadedness. SR with 1st degree AVB and BBB with rates in the 60s. BP 98/57. POX 97% on RA. Surgical sites stable. Pt ambulated in the garcia with standby assist. Pt tolerated. Pt assisted back to bed. Right IJ
cordis d/c per orders and old chest tube dressing changed. Pt tolerated.
[2025-05-09] MEDS: REMOVE LIDOCAINE PATCH 1 PATCH REMOVE (20:59)
--- NOTE | 2025-05-09 21:00 | PTCARENOTE ---
Patient received resting in bed watching television. Patient A+A+Ox3. No neurological deficits noted. No c/o headache, dizziness or lightheadedness.
Denies need for pain medication. Right lung wayne slightly diminished. Left lung wayne clear. No c/o SOB. Room air. SpO2 97%. Chest tube dressing intact. Sinus Rhythm with First Degree AV Block and BBC. AV Wires insulated. Heart rate
60's. Blood pressure 112/75 (85). Patient with no c/o chest pain, pressure or discomfort. Normoactive bowel sounds. No BM. Voiding without difficulty. Trace generalized edema. Positive, palpable pulses. Sternal incision intact - Surgical
adhesive - Open to air. Patient with no c/o back or flank pain. Assessment as documented.
[2025-05-09] MEDS: MELATONIN 5 MG PO (22:17)
[2025-05-10] VITALS (13 sets, daily range): BP systolic 95–125; BP diastolic 63–77; PULSE 62; O2SAT 97–98; BMI 28.2
--- NOTE | 2025-05-10 | PTCARENOTE ---
Patient sleeping without difficulty. No further changes from previous assessment.
[2025-05-10 03:56] LABS: Hematocrit 22.5 % (39.0-52.0); Hemoglobin 7.8 g/dL (13.0-18.0); Mean Corp Hgb Conc. 34.7 g/dL (33.0-37.0); Mean Corpuscular Volume 92.2 fL (80.0-94.0); Platelet Count 83 10^3/uL (130-400); Red Cell Dist. Width 14.0 % (11.5-14.5)
[2025-05-10 04:05] LABS: Blood Urea Nitrogen 28 mg/dl (9-20); Calcium 8.4 mg/dl (8.4-10.2); Carbon Dioxide 28 mmol/L (22-30); Chloride 105 mmol/L (98-107); Estimated Creatinine Clearance 78 ml/min; Glucose 130 mg/dl (70-99); Magnesium 2.0 mg/dl (1.6-2.3); Potassium 4.1 mmol/L (3.5-5.1); Sodium 136 mmol/L (135-145); eGFR > 60.00
--- NOTE | 2025-05-10 04:15 | PTCARENOTE ---
Patient resting in bed. Voided 450 ml almaz urine. Patient A+A+Ox3. No neurological deficits noted. No c/o pain or discomfort. AM lab work collected and sent. Patient given CHG bath and linens changed. Patient back to sleep.
Assessment/Interventions as documented.
--- NOTE | 2025-05-10 05:28 | W.PN.CT ---
Today's Communication / Plan
-
-pod #4
-no issues overnight, wants to go home
-ok to restart Eliquis this am per Dr. Sauceda. ASA was discontinued 05/07
-diuresing with 40 iv bid Lasix past 2 days (UO 625/2175 in 12/24 hrs)
-wt is up 10 lbs - ?continue Lasix at home for a few days
-sinus juve low 50s overnight with long 1st degree AVB- holding BB and Amio.
-platelets are low but stable - 83K today (72K on 05/09)
-Hg is low but stable - 7.8 today (7.8 on 05/09)
-encourage IS, ambulate
-Echo on 05/09
1. Mildly dilated left ventricle with moderately reduced systolic function. LVEF 35-40%.
2. Hypokinesis of the inferior and inferolateral mccollum.
3. Mildly dilated right ventricle with normal function.
4. Well-seated aortic valve prosthesis with normal gradients and trace paravalvular leak.
5. S/p mitral valve repair with normal gradients and trace mitral regurgitation.
6. Compared to intraoperative RAOUL on 05/06/2025, mitral and aortic valve gradients are stable. LVEF is now moderately reduced (previously normal). Wall motion was not as well-visualized on RAOUL, so it is difficult to tell if regional wall motion
abnormalities are new.
Assessment / Plan
-
Assessment:
-S/P Sternotomy/Radical mitral valve repair [triangular dissection at P1 with sliding plasty onto the commisure with the remnant P1 leaflet and cleft closure of P1 P2, 34 mm band annuloplasty]/Surgical aortic valve replacement [29 mm
bioprosthesis]/Left atrial maze [RF ablation and cryoablation]/ Left atrial appendage exclusion, by Dr. Sauceda, 05/06/25, pod#4
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
-Moderate aortic valve insufficiency secondary to leaflet pathology at the noncoronary cusp commissure, fenestrations
-Paroxysmal atrial fibrillation (on Eliquis @ home)
-S/P RAOUL cardioversion on 03/31
-LVEF 60% per introp RAOUL
-Acute on chronic diastolic CHG
-HLD
-S/p inguinal herniorrhaphy x 3
-S/P Joyce
-S/P Left knee arthroscopy
-Acute postop blood loss/Anemia (stable)
-Acute postop thrombocytopenia (without active bleed)
-Acute on chronic rapid a-fib postop 05/06, requiring CV d/t hypotension, then accelerated junctional rhythm 90s, requiring d/c of iv Amio
-Acute postop atelectasis with fever
-Acute postop hypovolemia with subsequent hypervolemia
-Acute postop accelerated junctional rhythm, bradycardia - held BB and Amio postop
-Acute postop sinus with PAC's
-11 beat NSVT 05/09, asymptomatic
Discussed patient care with: Nursing and Care Team
Subjective
Procedure
-S/P Sternotomy/Radical mitral valve repair [triangular dissection at P1 with sliding plasty onto the commisure with the remnant P1 leaflet and cleft closure of P1 P2, 34 mm band annuloplasty]/Surgical aortic valve replacement [29 mm
bioprosthesis]/Left atrial maze [RF ablation and cryoablation]/ Left atrial appendage exclusion, by Dr. Sauceda, 05/06/25
-
Date of Service: May 10, 2025
Objective Data
-
Lab Results
05/10/25 03:43
05/10/25 03:43
PT 16.4 Sec (11.4-14.6) H 05/07/25 03:32
INR 1.29 05/07/25 03:32
APTT 34.3 Sec (23.4-35.0) 05/06/25 13:44
Vital Signs
Vital Signs
Temp Pulse Resp BP Pulse Ox
98.0 F 57 16 125/77 98
05/10/25 03:50 05/10/25 04:00 05/10/25 03:50 05/10/25 03:52 05/10/25 03:50
CT Intake/Output/Weight
05/09/25 05/09/25 05/10/25
06:59 18:59 06:59
Intake Total 120 / 1210 530 / 770 240 / 770
Output Total 550 / 2340 1550 / 2175 625 / 2175
Balance -430 / -1130 -1020 / -1405 -385 / -1405
SaO2: 98
Physical Exam
-
General: Awake and AOx3
Cardiovascular: Regular rate & rhythm, No Murmurs and No Rub
Respiratory: Decreased Breath Sounds
Sternum: Stable
Incision: Clean, Dry and Intact
Extremities: No Edema
Abdomen: soft, nontender, nondistended, + bowel sounds
Data Reviewed
-
Lab Results: Results Reviewed
Medications: Active Meds Reviewed
Chest X-Ray: Report Reviewed and Image Reviewed
ECG: Report Reviewed and Image Reviewed
[2025-05-10] MEDS: TYLENOL 1000 MG PO ×2 (06:21→14:08)
--- NOTE | 2025-05-10 08:00 | PTCARENOTE ---
Resumed care of patient. Pt assessed while he was sitting in the chair. Pt alert and oriented x4. Pt denies pain, nausea, and shortness of breath. PAIGE with equal strength throughout. SR with 1st degree AVB and LBBB with rates in the 60s. BP 110/69.
Bilateral radial and DP pulses palpable. No edema noted. Epicardial AV wires insulated. POX 97% on RA. Lungs diminished R base. No cough noted. IS encouraged-2500mL achieved. Abdomen soft, round, nontender. +BS +gas. Pt due to void. Sternal incision
approximated, HOP PICKER. Old CT site covered, CDI. Right AC 18g PIV intact. See MAR for medication administration. See worklist for complete nursing assessment. Plan of care reviewed and patient in agreement.
[2025-05-10] MEDS: LIDOCAINE 4% PATCH TOPICAL (08:15)
[2025-05-10] MEDS: BACTROBAN 2% OINTMENT 1 APPLIC NASAL (08:15)
[2025-05-10] MEDS: PROTONIX 40 MG PO (08:15)
[2025-05-10] MEDS: MAGNESIUM OXIDE 400 MG PO (08:15)
[2025-05-10] MEDS: NSS IV (08:15)
[2025-05-10] MEDS: SENOKOT-S 1 TABLET PO (08:15)
[2025-05-10] MEDS: ENTRESTO 24 MG/26 MG 1 TAB PO (08:35)
[2025-05-10] MEDS: ELIQUIS 5 MG PO (09:51)
[2025-05-10] MEDS: LASIX 20 MG PO (09:51)
--- NOTE | 2025-05-10 12:10 | PTCARENOTE ---
Pt reassessed. SR with 1st degree AVB and LBBB with rates in 60s. BP 118/74. Ambulated in the garcia, stated he felt dizzy upon returning to the room and sitting in the chair. BP stable. Surgical sites stable. Pt voiding in the urinal. No other acute
changes.
--- NOTE | 2025-05-10 14:36 | W.DCSUMMARY ---
Discharge Summary
Discharge Data
Date of Admission: 05/06/25
Date of Discharge: 05/10/25
-
Pending Results: No
Hospital Course
Primary care physician:
Aj Johnson
Outpatient manager universal:
Aster Thornton
Inpatient consultants:
[facility]
Procedures:
1. 05/06/25: Radical mitral valve repair [triangular dissection at P1 with sliding plasty onto the commisure with the remnant P1 leaflet and cleft closure of P1 P2, 34 mm band annuloplasty], Surgical aortic valve replacement [29 mm bioprosthesis],
Left atrial maze [RF ablation and cryoablation], andLeft atrial appendage exclusion
Admission Diagnosis:
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
-Moderate aortic valve insufficiency secondary to leaflet pathology at the noncoronary cusp commissure, fenestrations
-Paroxysmal atrial fibrillation (on Eliquis @ home)
-S/P RAOUL cardioversion on 03/31
-LVEF 60% per introp RAOUL
-Acute on chronic diastolic CHG
-HLD
-S/p inguinal herniorrhaphy x 3
-S/P Joyce
-S/P Left knee arthroscopy
Discharge Diagnoses:
-Same as above
-Acute postop blood loss/Anemia (stable)
-Acute postop thrombocytopenia (without active bleed)
-Acute on chronic rapid a-fib postop 05/06, requiring DCCV d/t hypotension, then accelerated junctional rhythm 90s, requiring d/c of iv Amio
-Acute postop atelectasis with fever
-Acute postop hypovolemia with subsequent hypervolemia
-Acute postop accelerated junctional rhythm, bradycardia - held BB and Amio postop
HPI: This is a 70-year-old male who was recently admitted to an outside facility for just of heart failure. He was found to have severe mitral valve insufficiency secondary to a P3/P2 flail scallop. Given his admission for heart failure and his
severe mitral valve insufficiency he met class I indication for surgical intervention. He also had a moderate degree of aortic valve insufficiency which would be evaluated time of surgery. Given his paroxysmal atrial fibrillation, he was offered
surgical ablation as well as left atrial appendage exclusion.
Hospital course: Patient was admitted for same-day admissions on May 06, taken to the OR and underwent aortic valve replacement, mitral valve repair, and modified maze procedure by Dr. Henri Sauceda. The patient tolerated the procedure well
and was transferred to the CVICU in stable condition on vasopressin, Levophed, and dobutamine. He developed rapid atrial fibrillation and required DC cardioversion with 200 J and the addition of amiodarone drip. He developed an accelerated
junctional rhythm and the amiodarone drip was stopped. He was able to be weaned from the ventilator and was extubated at approximately 6:30 PM. By postoperative day 1 his vasopressin and Levophed were weaned off, he was noted to be in sinus rhythm
with PACs. Amiodarone was again initiated and his dobutamine was weaned to 2. The dobutamine was able to be turned off later that evening. On postoperative day 2 he received 1 unit of packed red blood cells for hemoglobin of 7.8 along with
diuretics. Platelet count was 74 so we held the aspirin. His Montoya was discontinued. His beta-carlie was being held due to sinus rhythm with a first-degree AV block. Mediastinal chest tubes were discontinued. On postop day 3 again he was
diuresed his right IJ catheter was removed he was in sinus rhythm with a first-degree AV block and a left bundle branch block. Platelet count was slowly recovering and he was started back on Eliquis. Remaining chest tubes were removed. On
postoperative day 4 he was started on Entresto and his blood pressures monitored. He did not become hypotensive and ambulated in the hallway without symptoms. It was felt that he could safely be discharged home with his . The patient was
given explicit instructions on wound care physical activity and diet. Prescriptions were sent online to [facility] pharmacy.
Home medication changes:
Continue:
apixaban 5 mg tablet (Eliquis) 5 mg PO BID Blood Clot Prevention/Tx 04/23/25
icosapent ethyl 1 gram capsule (Vascepa) 2 g PO BID High Cholesterol 04/23/25
multivitamin 1 tab PO DAILY Supplement 04/23/25
rosuvastatin 10 mg tablet 10 mg PO DAILY High Cholesterol 04/23/25
sildenafil 25 mg tablet 25 mg PO PRN PRN ED 04/23/25
diphenhydramine 25 mg-acetaminophen 500 mg tablet (Tylenol PM Extra Strength) 2 tab PO HS PRN may take instead of Tylenol at night (do not take in addition to Tylenol)
acetaminophen 325 mg tablet 650 mg (2 x 325 mg) PO Q4HPRN PRN mild pain,headache,temp >101F #0 tabs 05/10/25
New:
furosemide 20 mg tablet 20 mg PO DAILY 5 days #5 tabs 05/10/25
potassium chloride 10 mEq capsule,extended release 10 meq PO DAILY 5 days #5 caps 05/10/25
sacubitril 15 mg-valsartan 16 mg oral pellets 1 cap PO BID #60 ea 05/10/25
tramadol 50 mg tablet See Rx Instructions .Route .COMPLEX PRN moderate pain #20 tabs 05/10/25
Stop:
Amiodarone
Discharge Plan
-
Patient Disposition: Home (Routine Discharge)
Discharge Diagnosis/Procedures: AVR/MVrepair/MAZE/LA appendage clip
Condition: Good
Diet: Low Sodium
Driving Restrictions: No driving
Bathing Restrictions: OK to Shower
Activity Restrictions/Additional Instructions:
Please call to make appointments fo Phase II Cardiac Rehab:
[facility] (4 min from home)
[facility]

ACTIVITY:
-No strenuous activity: no heavy lifting, pushing, pulling anything over 15 pounds for one month
-continue to use stairs as tolerated
DRIVING RESTRICTIONS:
-No driving for one month or until approved by your surgeon
WOUND CARE:
-Shower daily. Use soap & water.
-No lotions, creams or powders on incision area.
DIET:
-continue a low fat/low cholesterol diet.
-IF you are diabetic, continue carb controlled diet.
CARDIAC REHAB:
-Please make appointment to start in 5-6 weeks with your local hospital program. (See Cardiac Rehabilitation Discharge Booklet).
SPECIALTY INSTRUCTIONS:
-Weigh yourself daily. Call your physician for any weight gain/loss of 3 lbs overnight or 5 lbs in one week.
-REPORT any clicking noise or uneven appearance of your sternum to your surgeon immediately.
-If you smoke, you are instructed to quit. The [facility] smoking hotline phone number is [phone]
Referrals:
CT Transitional Care Nurse [Outside]
Referral Note: The Cardiothoracic Transitional Care Nurse will call you to set up a visit in 1-2 days.
Aj Johnson MD [Family Provider]
Aster Maldonado MD [Active, Internal Medicine] - 06/24/25 12:00 pm
Ref[facility] Note[facility] [address] [facility] [place] [address]
Gorge Apple MD [Active, Pulmonary Medicine] - in four to six weeks
Referral Note: Incidental pulmonary nodules
Henri Sauceda MD [Active, Cardiac Surgery] - 06/02/25 2:00 pm
Prescriptions:
New
furosemide 20 mg Tablet
20 mg PO DAILY 5 Days Qty: 5 0RF
acetaminophen 325 mg Tablet
650 mg PO Q4HPRN PRN (Reason: mild pain,headache,temp >101F ) Qty: 0 0RF
tramadol 50 mg Tablet
See Rx Instructions .ROUTE .COMPLEX PRN (Reason: moderate pain) Qty: 20 0RF
Rx Instructions:
take 0.5 tab every 6 hours for moderate pain, take 1 tab every 6 hours for severe pain
potassium chloride 10 mEq capsule, extended release
10 meq PO DAILY 5 Days Qty: 5 0RF
sacubitril-valsartan 15-16 mg pellet
1 cap PO BID Qty: 60 2RF
Continued
diphenhydramine-acetaminophen [Tylenol PM Extra Strength] 25-500 mg Tablet
2 tab PO HS PRN (Reason: sleep)
Patient Comments:
Once in a while
multivitamin Tablet
1 tab PO DAILY
sildenafil 25 mg Tablet
25 mg PO PRN PRN (Reason: ED)
rosuvastatin 10 mg Tablet
10 mg PO DAILY
icosapent ethyl [Vascepa] 1 gram Capsule
2 g PO BID
Eliquis 5 mg Tablet
5 mg PO BID
Discontinued
amiodarone 200 mg Tablet
200 mg PO DAILY
Discharge Orders:
Discharge Patient (As Directed); Ordered 05/10/25
Ordered By: Matthew Garber
Care Plan Goals
Care Plan Goals:
Problem: Readiness for enhanced knowledge related to diagnosis and treatment plan
Goal: Understand your diagnosis and treatment plan needs, including medications if applicable.
Instructions: Know your diagnosis, underlying causes and treatment plan options, including medications if applicable. Consult with your health care team to learn about your diagnosis and treatment plan, including medications if applicable.
Discharge Date and Time
Discharge Date/Time: 05/10/25 15:50
Print Language: BELIZEAN
--- NOTE | 2025-05-10 15:00 | PTCARENOTE ---
Pt assisted back to bed. CT PA at bedside to cut wires. Pt tolerated. Discharge order received. All discharge instructions reviewed with patient and his . All questions answered. Pt assisted into the shower.
--- NOTE | 2025-05-10 15:42 | PTCARENOTE ---
pt tolerated shower, dressed self. IV dc'd. pt discharged w/ daughter via wheelchair w/ staff escort.
--- NOTE | 2025-05-12 11:47 | OID.L.PAT ---
Pulmonary Nodule Pat Letter
- -
05/12/25
KADE QUILES
[address] [facility]
[place], [place] [address]
Amor BRAUN,
A pulmonary nodule was seen on an imaging study done by [facility]. This was reviewed by the [facility] Pulmonary Nodule Advisory Board and the following recommendation was made:
Recommendation: Follow up with a Mailroom Supervisor
If you have any questions, please do not hesitate to contact your primary care physician. If you are in need of a Physician, you can go to [email or web address] and click on 'Find a Provider'. Type 'Family Medicine' in the search.
Oncology Nurse Navigator
[facility]
[phone]
--- NOTE | 2025-05-12 11:47 | OID.L.REC ---
Pulmonary Nodule Follow Up
- Recommendation
05/12/25
Pulmonary Nodule Review Recommendations
Your patient, KADE QUILES, had a pulmonary nodule seen on an imaging study done on 04/25/2025 in the [facility] Radiology Department.
This was reviewed by the [facility] Pulmonary Nodule Advisory Board and the following recommendation was made:
Recommendation: Follow up with a Business Account Specialist
If you have any questions, please do not hesitate to contact us.
Sincerely,
Oncology Nurse Navigator
[facility]
[phone]
== END 2025-05-10 15:50 | disposition home or self-care (01) | DRG 219 ==
LOC: CVICU 04:57
PROVIDERS: Anesthesiology; Nurse Practitioner; Physician Assistant Medical; ADMITTING PHYSICIAN Thoracic Surgery (Cardiothoracic Vascular Surgery); CONSULT PHYSICIAN Internal Medicine Critical Care Medicine; FAMILY PHYSICIAN Internal Medicine
PROC: 02UG0JZ Supplement Mitral Valve with Synthetic Substitute, Open Approach (ICD-10-PCS; 2025-05-06)
PROC: 5A1221Z Performance of Cardiac Output, Continuous (ICD-10-PCS; 2025-05-06)
PROC: B24BZZ4 Ultrasonography of Heart with Aorta, Transesophageal (ICD-10-PCS; 2025-05-06)
PROC: 02RF08Z Replacement of Aortic Valve with Zooplastic Tissue, Open Approach (ICD-10-PCS; 2025-05-06)
PROC: 02L70CK Occlusion of Left Atrial Appendage with Extraluminal Device, Open Approach (ICD-10-PCS; 2025-05-06)
PROC: 30233N1 Transfusion of Nonautologous Red Blood Cells into Peripheral Vein, Percutaneous Approach (ICD-10-PCS; 2025-05-06)
PROC: 02580ZZ Destruction of Conduction Mechanism, Open Approach (ICD-10-PCS; 2025-05-06)
DX: I34.0 Nonrheumatic mitral (valve) insufficiency (principal); I50.33 Acute on chronic diastolic (congestive) heart failure; I51.1 Rupture of chordae tendineae, not elsewhere classified; J95.821 Acute postprocedural respiratory failure; I48.21 Permanent atrial fibrillation; D62 Acute posthemorrhagic anemia; J98.11 Atelectasis; I35.1 Nonrheumatic aortic (valve) insufficiency; E78.00 Pure hypercholesterolemia, unspecified; R73.9 Hyperglycemia, unspecified; D69.59 Other secondary thrombocytopenia; I95.81 Postprocedural hypotension; E86.1 Hypovolemia; R00.1 Bradycardia, unspecified; Y83.2 Surgical operation with anastomosis, bypass or graft as the cause of abnormal reaction of the patient, or of later complication, without mention of misadventure at the time of the procedure; Z79.01 Long term (current) use of anticoagulants; Z79.899 Other long term (current) drug therapy; Z82.49 Family history of ischemic heart disease and other diseases of the circulatory system
CPT/HCPCS: 36415; 71045; 71046; 71250; 80048; 80053; 81003; 81015; 82248; 82330; 82565; 82805; 82810; 82947; 82962; 83036; 83735; 84132; 84302; 84520; 85014; 85018; 85025; 85027; 85049; 85610; 85730; 86850; 86900; 86901; 86920; 87070; 88305; 88311; 93005; 93308; 93312; 93320; 93325; 93880; 94002; J2916; P9016; P9045; P9047